=== PATIENT | female | born 1965 | race Caucasian/White ===

== ENCOUNTER → 2017-05-06 | Outpatient (CLI) | payer MEDICAID ==
[2017-05-06 07:46] LABS: Basophils % (A) 0 %; CH 29.3; CHCM 31.5; Eosinophils # (A) 0.1 k/uL (0-0.7); Eosinophils % (A) 1 %; HCT 46.4 % (34.0-46.0); HGB 14.4 gm/dL (11.4-16.0); Luc # (Auto) 0.13; Luc % (Auto) 3; Lymphocytes # (A) 1.8 k/uL (1.0-4.8); Lymphocytes % (A) 36 %; MCH 29.1 pg (25.0-35.0); MCHC 31.1 g/dL (31.0-37.0); MCV 93.4 fL (80.0-100.0); Mean Platelet Volume 7.4; Monocytes # (A) 0.3 k/uL (0-1.0); Monocytes % (A) 7 %; Neutrophils # (A) 2.6 k/uL (1.3-7.7); Neutrophils % (A) 53 %; RBC 4.96 m/uL (3.80-5.40); RDW 12.6 % (11.5-15.5)
[2017-05-06 08:41] LABS: ALT 37 U/L (9-52); AST 23 U/L (14-36); Alkaline Phosphatase 111 U/L (38-126); Anion Gap 9 mmol/L; Blood Urea Nitrogen 13 mg/dL (7-17); Calcium 9.8 mg/dL (8.4-10.2); Carbon Dioxide 27 mmol/L (22-30); Chloride 105 mmol/L (98-107); Cholesterol 296 mg/dL (<200); Glucose 87 mg/dL (74-99); HDL Cholesterol 71 mg/dL (40-60); Non-African American GFR(MDRD) >60 (>60 ml/min/1.73 sqM); Potassium 4.7 mmol/L (3.5-5.1); Sodium 141 mmol/L (137-145); Total Bilirubin 0.6 mg/dL (0.2-1.3); Total Protein 7.3 g/dL (6.3-8.2)
[2017-05-06 09:30] LABS: Vitamin B12 874 pg/mL (239-931)
[2017-05-06 12:56] LABS: Hemoglobin A1C 5.7 % (4.2-6.1)
[2017-05-06 13:44] LABS: Estradiol <11.8 pg/mL
== END | disposition home or self-care (01) ==
LOC: LABWHC1 06:33
PROVIDERS: ATTEND Family Medicine
DX: Z00.00 Encounter for general adult medical examination without abnormal findings (principal); R53.83 Other fatigue; E89.41 Symptomatic postprocedural ovarian failure
CPT/HCPCS: 36415; 80053; 80061; 82040; 82306; 82607; 82626; 82670; 82672; 83001; 83002; 83036; 84270; 84403; 84443; 85025

== ENCOUNTER → 2017-05-14 | Outpatient (CLI) | payer MEDICAID ==
--- NOTE | 2017-05-17 10:02 | MM ---
Reason for exam: screening (asymptomatic). Last mammogram was performed 4 years and 5 months ago. Physical Findings: A clinical breast exam by your physician is recommended on an annual basis and results should be correlated with mammographic findings. MG Screening Mammo w CAD Bilateral CC and MLO view(s) were taken. Prior study comparison: December 02, 2012, bilateral digital screening mammo w/CAD. April 08, 2001, mammogram, performed at [facility]. There are scattered fibroglandular densities. No significant changes when compared with prior studies. ASSESSMENT: Benign, BI-RAD 2 RECOMMENDATION: Routine screening mammogram of both breasts in 1 year.
== END | disposition home or self-care (01) ==
LOC: RADMAMWWP 06:45
PROVIDERS: ATTEND Family Medicine
DX: Z12.31 Encounter for screening mammogram for malignant neoplasm of breast (principal)

== ENCOUNTER → 2017-05-17 | Outpatient (CLI) | payer SELFPAY ==
--- NOTE | 2017-05-18 10:23 | ECHOF ---
Referral Reason: MEASUREMENTS -------- HEIGHT: 172.7 cm WEIGHT: 102.1 kg BP: RVIDd: 3.2 cm (< 3.3) IVSd: 1.0 cm (0.6 - 1.1) LVIDd: 5.0 cm (3.9 - 5.3) LVPWd: 1.2 cm (0.6 - 1.1) IVSs: 1.4 cm LVIDs: 3.8 cm LVPWs: 1.4 cm LAESV Index (A-L): 15.95 ml/m Ao Diam: 2.9 cm (2.0 - 3.7) AV Cusp: 2.1 cm (1.5 - 2.6) LA Diam: 3.4 cm (2.7 - 3.8) MV EXCURSION: 18.742 mm (> 18.000) MV EF SLOPE: 93 mm/s (70 - 150) EPSS: 0.3 cm MV E Hunter: 0.81 m/s MV DecT: 260 ms MV A Hunter: 0.88 m/s MV E/A Ratio: 0.92 RAP: 5.00 mmHg RVSP: 24.03 mmHg FINDINGS -------- Sinus rhythm. This was a technically adequate study. The left ventricular size is normal. There is borderline concentric left ventricular hypertrophy. Overall left ventricular systolic function is normal with, an EF between 55 - 60 %. The right ventricle is normal in size and function. Normal LA size by volume 22+/-6 ml/m2. The right atrium is normal in size. The aortic valve is trileaflet, and appears structurally normal. No aortic stenosis or regurgitation. The mitral valve leaflets are mildly thickened. There is trace mitral regurgitation. There is minimal mitral valve prolapse. Trace tricuspid regurgitation present. Right ventricular systolic pressure is normal at < 35 mmHg. There is no evidence of pulmonary hypertension. Trace/mild (physiologic) pulmonic regurgitation. The aortic root size is normal. Normal inferior vena cava with normal inspiratory collapse consistent with estimated right atrial pressure of 5 mmHg. The pericardium is normal. There is no pericardial effusion. CONCLUSIONS -------- 1. Sinus rhythm. 2. There is minimal mitral valve prolapse. 3. Trace tricuspid regurgitation present. 4. Right ventricular systolic pressure is normal at < 35 mmHg. 5. There is no evidence of pulmonary hypertension. 6. Trace/mild (physiologic) pulmonic regurgitation. 7. The aortic root size is normal. 8. There is no pericardial effusion. 9. This was a technically adequate study. 10. The left ventricular size is normal. 11. There is borderline concentric left ventricular hypertrophy. 12. Overall left ventricular systolic function is normal with, an EF between 55 - 60 %. 13. Normal LA size by volume 22+/-6 ml/m2. 14. The aortic valve is trileaflet, and appears structurally normal. No aortic stenosis or regurgitation. 15. The mitral valve leaflets are mildly thickened. 16. There is trace mitral regurgitation. DIRECTOR IT PROJECT: Jairo Ignacio RDCS
== END | disposition home or self-care (01) ==
LOC: RADECHMAIN 16:20
PROVIDERS: ATTEND Family Medicine
DX: I34.1 Nonrheumatic mitral (valve) prolapse (principal)
CPT/HCPCS: 93306

== ENCOUNTER → 2019-10-10 | Outpatient (CLI) | payer BC ==
--- NOTE | 2019-10-11 12:04 | MM ---
Reason for exam: screening (asymptomatic). Last mammogram was performed 2 years and 5 months ago. History: Patient is postmenopausal. Physical Findings: A clinical breast exam by your physician is recommended on an annual basis and results should be correlated with mammographic findings. MG 3D Screening Mammo W/Cad Bilateral CC and MLO view(s) were taken. Prior study comparison: May 14, 2017, bilateral MG screening mammo w CAD. December 02, 2012, bilateral digital screening mammo w/CAD. Right lateral spiculated asymmetry 10cm from nipple. ASSESSMENT: Incomplete: need additional imaging evaluation, BI-RAD 0 RECOMMENDATION: Special view mammogram of the right breast. If lesion persists on supplemental views, image directed ultrasound is recommended. [facility] will attempt to contact patient to return for supplemental views and ultrasound if indicated.
== END | disposition home or self-care (01) ==
LOC: RADMAMWWP 06:56
PROVIDERS: ATTEND Family Medicine
DX: Z12.31 Encounter for screening mammogram for malignant neoplasm of breast (principal)
CPT/HCPCS: 77063; 77067

== ENCOUNTER → 2019-10-20 | Outpatient (CLI) | payer BC ==
--- NOTE | 2019-10-20 10:14 | MM ---
Reason for exam: additional evaluation requested from abnormal screening. Last mammogram was performed less than 1 month ago. History: Patient is postmenopausal and had first child at age 33. Took hormonal contraceptives for 30 years. Taking progesterone for 2 years. Taking other hormone for 1 year. Physical Findings: Nurse did not find any significant physical abnormalities on exam. MG 3D Work Up W/Cad RT Spot compression CC and ML view(s) were taken of the right breast. Prior study comparison: October 10, 2019, bilateral MG 3d screening mammo w/cad. May 14, 2017, bilateral MG screening mammo w CAD. The breast tissue is heterogeneously dense. This may lower the sensitivity of mammography. The previously seen abnormality resolves on additional views and appears as fibroglandular tissue compatible with summation in the right breast. These results were verbally communicated with the patient and result sheet given to the patient on 10/20/19. ASSESSMENT: Negative, BI-RAD 1 RECOMMENDATION: Return to routine screening mammogram schedule for both breasts.
== END | disposition home or self-care (01) ==
LOC: RADMAMWWP 08:57
PROVIDERS: ATTEND Family Medicine
DX: R92.8 Other abnormal and inconclusive findings on diagnostic imaging of breast (principal)
CPT/HCPCS: 77061; 77065

== ENCOUNTER → 2021-03-21 | Outpatient (CLI) | payer BC ==
--- NOTE | 2021-03-21 11:13 | US ---
EXAMINATION TYPE: US abdomen complete DATE OF EXAM: 03/21/2021 COMPARISON: CLINICAL HISTORY: R10.9 ABD PAIN. Generalized abd pain. NPO. EXAM MEASUREMENTS: Liver Length: 15.3 cm Gallbladder Wall: 0.2 cm CBD: 0.4 cm Spleen: 11.4 cm Right Kidney: 11.4 x 5.4 x 5.4 cm Left Kidney: 11.2 x 5.1 x 6.2 cm Pancreas: Tail obscured by overlying bowel gas Liver: Heterogenous and coarse Gallbladder: wnl Evidence for sonographic Webster's sign: neg CBD: wnl Spleen: wnl Right Kidney: No hydronephrosis or masses seen Left Kidney: No hydronephrosis or masses seen Upper IVC: wnl Abd Aorta: No AAA visualized IMPRESSION: 1. Heterogeneous pattern of liver is nonspecific could be seen with hepatic steatosis or hepatocellul ar disease such as hepatitis correlate clinically.
== END | disposition home or self-care (01) ==
LOC: RADUSWWP 10:42
PROVIDERS: ATTEND Family Medicine
DX: R10.9 Unspecified abdominal pain (principal)
CPT/HCPCS: 76700

== ENCOUNTER → 2021-05-19 | Outpatient (CLI) | payer BC ==
--- NOTE | 2021-05-19 15:22 | NM ---
EXAMINATION TYPE: NM hepatobiliary w EF DATE OF EXAM: 05/19/2021 COMPARISON: NONE HISTORY: RUQ R10.11 TECHNIQUE: After the intravenous administration of 4.3 mCi Tc 99m Mebrofenin hepatobiliary scintigrap hy is performed. Immediate images post injection. FINDINGS: There is satisfactory initial accumulation of tracer by the liver. The gallbladder is visualized wit hin 6 minutes. The small bowel activity is noted within 6 minutes. At one hour 8 ounces of oral ens ure plus is given to mimic CCK and gallbladder ejection fraction is calculated at 82 %, in the normal range. Therefore there is no scintigraphic evidence of cystic or common bile duct obstruction to gomes ggest acute cholecystitis or gallbladder dyskinesia. IMPRESSION: Exam is within normal limits.
== END | disposition home or self-care (01) ==
LOC: RADNMMAIN 12:41
PROVIDERS: ATTEND Family Medicine
DX: R10.11 Right upper quadrant pain (principal)
CPT/HCPCS: 78226; A9537

== ENCOUNTER → 2021-12-30 | Outpatient (CLI) | payer BC ==
--- NOTE | 2021-12-31 17:09 | MM ---
Reason for Exam: Screening (asymptomatic). Last mammogram was performed 2 year(s) and 2 month(s) ago. Patient History: Menarche at age 14. First Full-Term at age 33. Late child-bearing (after 32). Left ovary removed at age 48. Right ovary removed at age 48. Postmenopausal. Currently using Progesterone, for 4 years. Patient used Hormonal Contraceptives for 30 years. Risk Values: Susy 5 year model risk: 1.6%. NCI Lifetime model risk: 11.4%. Film Views: Bilateral CC views were taken. Bilateral MLO views were taken. Bilateral XCCL views were taken. Prior Study Comparison: 05/14/2017 Bilateral Screening Mammogram, [facility]. 10/10/2019 Bilateral Screening Mammogram, [facility]. 10/20/2019 Right Diagnostic Mammogram, [facility]. Tissue Density: There are scattered fibroglandular densities. Findings: Analyzed By CAD. There is no suspicious group of microcalcifications or new suspicious mass in either breast. Overall Assessment: Negative, BI-RAD 1 Management: Screening Mammogram of both breasts in 1 year. A clinical breast exam by your physician is recommended on an annual basis and results should be correlated with mammographic findings. Electronically signed and approved by: Scar Carolina D.O. Radiologis
== END | disposition home or self-care (01) ==
LOC: RADMAMWWP 06:53
PROVIDERS: ATTEND Nurse Practitioner Family
DX: Z12.31 Encounter for screening mammogram for malignant neoplasm of breast (principal)
CPT/HCPCS: 77067

== ENCOUNTER 2023-04-22 00:07 | Emergency (ER) | payer BC ==
--- NOTE | 2023-04-22 00:53 | ED ---
ENT HPI - General Chief complaint: ENT Stated complaint: Jaw Pain Time Seen by Provider: 04/22/23 00:41 Source: patient Mode of arrival: ambulatory Limitations: no limitations - History of Present Illness Initial comments: 57-year-old female presenting with chief complaint of left-sided jaw pain. Patient states that pain has been present for about a week. She initially thought it was TMJ. She has been seeing her chiropractor for this. Patient states that pain is worsening and she went to urgent care this evening and gave her shot of Toradol. She has been alternating heat and ice. Tonight she woke up in severe pain and also noted new swelling to the left lower jaw. She has no known dental caries or fractures. She does admit to tooth and gum pain. No fevers or chills. No difficulty breathing or swallowing. - Related Data Previous Rx's Medication Instructions Recorded Clindamycin [Cleocin] 450 mg PO TID 7 Days #63 cap 04/22/23 Allergies Allergy/AdvReac Type Severity Reaction Status Date / Time Penicillins Allergy Rash/Hives Verified 04/22/23 00:14 Review of Systems ROS Statement: Those systems with pertinent positive or pertinent negative responses have been documented in the HPI. ROS Other: All systems not noted in ROS Statement are negative. Past Medical History Past Medical History: No Reported History History of Any Multi-Drug Resistant Organisms: None Reported Past Surgical History: Orthopedic Surgery, Tonsillectomy Past Psychological History: ADD/ADHD Smoking Status: Never smoker Past Alcohol Use History: None Reported Past Drug Use History: Marijuana General Exam Limitations: no limitations General appearance: alert, in no apparent distress Head exam: Present: atraumatic, normocephalic, normal inspection Eye exam: Present: normal appearance, EOMI ENT exam: Present: normal oropharynx, mucous membranes moist Expanded Mouth exam: Present: tongue normal. Absent: drooling, trismus, muffled voice Teeth exam: Present: normal inspection, dental tenderness # Throat exam: normal inspection Neck exam: Present: normal inspection, full ROM Respiratory exam: Absent: respiratory distress Neurological exam: Present: alert, oriented X3, CN II-XII intact Psychiatric exam: Present: normal affect, normal mood Skin exam: Present: warm, dry, intact, normal color. Absent: rash Course Vital Signs 04/22/23 00:11 Temperature 97.6 F Pulse Rate 93 Respiratory 16 Rate Blood Pressure 180/95 O2 Sat by Pulse 97 Oximetry Medical Decision Making - Medical Decision Making Was pt. sent in by a medical professional or institution (SELENA Charles, CLIENT SUCCESS MANAGER, urgent care, hospital, or senior care...) When possible be specific @ -No Did you speak to anyone other than the patient for history (EMS, parent, family, police, friend...)? What history was obtained from this source @ -No Did you review nursing and triage notes (agree or disagree)? Why? @ -I reviewed and agree with nursing and triage notes Were old charts reviewed (outside hosp., previous admission, EMS record, old EKG, old radiological studies, urgent care reports/EKG's, senior care records)? Report findings @ -No old charts were reviewed Differential Diagnosis (chest pain, altered mental status, abdominal pain women, abdominal pain men, vaginal bleeding, weakness, fever, dyspnea, syncope, headache, dizziness, GI bleed, back pain, seizure, CVA, palpatations, mental health, musculoskeletal)? @ -Differential includes dental pain, dental abscess, Pancho angina, this is not an all inclusive list EKG interpreted by me (3pts min.). @ -As above X-rays interpreted by me (1pt min.). @ -None done CT interpreted by me (1pt min.). @ -None done U/S interpreted by me (1pt. min.). @ -None done What testing was considered but not performed or refused? (CT, X-rays, U/S, labs)? Why? @ -None What meds were considered but not given or refused? Why? @ -None Did you discuss the management of the patient with other professionals (professionals i.e. SELENA Charles, CLIENT SUCCESS MANAGER, lab, RT, psych nurse, social worker delinquency prevention, corporate lawyer, teacher, complaint investigations officer, manager rn case)? Give summary @ -No Was smoking cessation discussed for >3mins.? @ -No Was critical care preformed (if so, how long)? @ -No Were there social determinants of health that impacted care today? How? (Homelessness, low income, unemployed, alcoholism, drug addiction, transportation, low edu. Level, literacy, decrease access to med. care, longterm, rehab)? @ -No Was there de-escalation of care discussed even if they declined (Discuss DNR or withdrawal of care, Hospice)? DNR status @ -No What co-morbidities impacted this encounter? (DM, HTN, Smoking, COPD, CAD, Cancer, CVA, ARF, Chemo, Hep., AIDS, mental health diagnosis, sleep apnea, morbid obesity)? @ -None Was patient admitted / discharged? Hospital course, mention meds given and route, prescriptions, significant lab abnormalities, going to OR and other pertinent info. @ -57-year-old female presenting with chief complaint of left lower sided jaw pain. Tonight she noted swelling to the jaw. She admits to dental pain and gum pain. On physical examination there is tenderness to the left sided lower teeth and gums. No brawny induration. Normal posterior pharynx. Patient is started on clindamycin for dental abscess due to penicillin ALLERGY. Educated on supportive management instructed to follow-up with her dentist. Follow-up with PCP. Report back to ER with any new or worsening symptoms. Discussed return parameters and answered all questions. Patient conveyed verbal understanding and agreed to the plan. I discussed this case in detail with my attending Dr. Acosta Undiagnosed new problem with uncertain prognosis? @ -No Drug Therapy requiring intensive monitoring for toxicity (Heparin, Nitro, Insulin, Cardizem)? @ -No Were any procedures done? @ -No Diagnosis/symptom? @ -Dental abscess Acute, or Chronic, or Acute on Chronic? @ -acute Uncomplicated (without systemic symptoms) or Complicated (systemic symptoms)? @ -Uncomplicated Side effects of treatment? @ -No Exacerbation, Progression, or Severe Exacerbation? @ -No Poses a threat to life or bodily function? How? (Chest pain, USA, VT, pneumonia, PE, COPD, DKA, ARF, appy, cholecystitis, CVA, Diverticulitis, Homicidal, Suicidal, threat to staff... and all critical care pts) @ -No Disposition Clinical Impression: Dental abscess Disposition: HOME SELF-CARE Condition: Good Instructions (If sedation given, give patient instructions): Dental Abscess (ED) Additional Instructions: Follow-up with your dentist. Report back to ER with any new or worsening symptoms. Take medication as prescribed. Alternate Motrin and Tylenol as needed for pain control. Prescriptions: Clindamycin [Cleocin] 450 mg PO TID 7 Days #63 cap Is patient prescribed a controlled substance at d/c from ED?: No Referrals: Ernst Montanez DO [Primary Care Provider] - 1-2 days Time of Disposition: 00:52
[2023-04-22] MEDS ORDERED: ACET/COD 300 MG/30 MG STARTER PACK 6 TAB BTL PO STA (00:54)
[2023-04-22] MEDS ORDERED: CLINDAMYCIN 150 MG CAP PO STA (00:54)
[2023-04-22 15:51] VITALS: BP 180/95; PULSE 93; RESP 16; TEMP 97.6
== END 2023-04-22 01:07 | disposition home or self-care (01) ==
LOC: EC 00:07
DX: K04.7 Periapical abscess without sinus (principal); F12.90 Cannabis use, unspecified, uncomplicated; Z86.59 Personal history of other mental and behavioral disorders
CPT/HCPCS: 99282

== ENCOUNTER 2023-05-08 13:23 | Inpatient (IN) | payer BC ==
[2023-05-08 14:12] LABS: Basophils % (A) 0 %; Eosinophils # (A) 0.1 k/uL (0-0.7); Eosinophils % (A) 1 %; HCT 39.3 % (34.0-46.0); HGB 12.8 gm/dL (11.4-16.0); Lymphocytes # (A) 1.3 k/uL (1.0-4.8); Lymphocytes % (A) 15 %; MCH 29.5 pg (25.0-35.0); MCHC 32.5 g/dL (31.0-37.0); MCV 90.9 fL (80.0-100.0); Mean Platelet Volume 7.9; Monocytes # (A) 0.6 k/uL (0-1.0); Monocytes % (A) 7 %; Neutrophils # (A) 6.7 k/uL (1.3-7.7); Neutrophils % (A) 76 %; Platelet Count 369 k/uL (150-450); RBC 4.33 m/uL (3.80-5.40); RDW 12.3 % (11.5-15.5); WBC 8.9 k/uL (3.8-10.6)
--- NOTE | 2023-05-08 14:26 | ED ---
General Adult HPI - General Source: patient, RN notes reviewed Mode of arrival: ambulatory Limitations: no limitations <Toñito Hernandez - Last Filed: 05/08/23 14:24> - General Source: patient, RN notes reviewed Mode of arrival: ambulatory Limitations: no limitations <Rolan Ramirez - Last Filed: 05/08/23 16:49> - General Chief complaint: Skin/Abscess/Foreign Body Stated complaint: Facial Swelling Time Seen by Provider: 05/08/23 14:24 - History of Present Illness Initial comments: 57-year-old female presents emergency Department chief complaint of facial infection. Patient states that she's been dealing with issues for last 3 weeks. Patient was placed on oral antibiotics she states she follow-up with her dentist after this and was sent to cartridge filler. Patient had a root canal states it still has it's antiemetic portion. Patient states that she had it opened. Patient had a CAT scan at [facility] which showed no bone infection or formation of abscess. Patient discussed with and odontoid last today and advised her to come emergency department for possible admission (Toñito Hernandez) Patient is a pleasant 57-year-old female presenting to the emergency department with concern for dental infection. Patient states this has been going on for several weeks. Patient was here on the and given clindamycin. This was continued. Patient did have a root canal. Patient was started on Levaquin yesterday and has had 2 doses of this now. Patient states there is still some swelling and drainage left lower region that was previously infected. Patient states now since yesterday there is some swelling on the right lower as well. Patient does not have drainage coming from the right lower region. No dyspnea. Patient is tolerating oral intake. (Rolan Ramirez) - Related Data Previous Rx's Medication Instructions Recorded Clindamycin [Cleocin] 450 mg PO TID 7 Days #63 cap 04/22/23 Allergies Allergy/AdvReac Type Severity Reaction Status Date / Time Penicillins Allergy Rash/Hives Verified 04/22/23 00:14 Review of Systems ROS Other: All systems not noted in ROS Statement are negative. <Toñito Hernandez - Last Filed: 05/08/23 14:24> ROS Other: All systems not noted in ROS Statement are negative. Constitutional: Reports: as per HPI (Subjective fevers. Patient states she has been taking a lot of Motrin) Eyes: Denies: eye pain ENT: Reports: as per HPI, dental pain Respiratory: Denies: dyspnea <Rolan Ramirez - Last Filed: 05/08/23 16:49> ROS Statement: Those systems with pertinent positive or pertinent negative responses have been documented in the HPI. Past Medical History Past Medical History: No Reported History History of Any Multi-Drug Resistant Organisms: None Reported Past Surgical History: Orthopedic Surgery, Tonsillectomy Past Psychological History: ADD/ADHD Smoking Status: Never smoker Past Alcohol Use History: None Reported Past Drug Use History: Marijuana <Toñito Hernandez - Last Filed: 05/08/23 14:24> General Exam Limitations: no limitations <Toñito Hernandez - Last Filed: 05/08/23 14:24> Limitations: no limitations General appearance: alert, in no apparent distress Head exam: Present: atraumatic Eye exam: Present: normal appearance ENT exam: Present: other (Left lower canine and second premolar with mild swelling and purulent drainage that is easily expressed using tongue depressor. Right lower anterior and slightly lateral mandible with exterior swelling. No sign of dental swelling or drainage in that region. No submental or submandibular swelling ) Neck exam: Present: normal inspection Respiratory exam: Present: normal lung sounds bilaterally. Absent: respiratory distress Cardiovascular Exam: Present: regular rate, normal rhythm GI/Abdominal exam: Present: soft. Absent: tenderness Extremities exam: Present: normal inspection Neurological exam: Present: alert Psychiatric exam: Present: normal affect, normal mood Skin exam: Present: normal color <Rolan Ramirez - Last Filed: 05/08/23 16:49> - General Exam Comments Initial Comments: Visual Physical Exam Vital signs reviewed General: Well-appearing, nontoxic, no acute distress. Head: Normocephalic, atraumatic Eyes: PERRLA, EOMI ENT: Airway patent erythema in the submandibular region Chest: Nonlabored breathing Skin: No visual rash, normal skin tone Neuro: Alert and oriented 3 Musculoskeletal: No gross abnormalities (Toñito Hernandez) Course Vital Signs 05/08/23 13:31 Temperature 98.5 F Pulse Rate 104 H Respiratory 20 Rate Blood Pressure 178/86 O2 Sat by Pulse 98 Oximetry Medical Decision Making - Lab Data Result diagrams: 05/08/23 13:50 <Toñito Hernandez - Last Filed: 05/08/23 14:24> - Lab Data Result diagrams: 05/08/23 13:50 05/08/23 13:50 <Rolan Ramirez - Last Filed: 05/08/23 16:49> - Medical Decision Making I performed a quick note portion of this chart signed Toñito Hernandez PA-C (Toñito Hernandez) Was pt. sent in by a medical professional or institution ([facility], [facility], urgent care, hospital, or fpc...) When possible be specific @ -No Did you speak to anyone other than the patient for history (EMS, parent, family, police, friend...)? What history was obtained from this source @ -No Did you review nursing and triage notes (agree or disagree)? Why? @ -I reviewed and agree with nursing and triage notes Were old charts reviewed (outside hosp., previous admission, EMS record, old EKG, old radiological studies, urgent care reports/EKG's, fpc records)? Report findings @ -No old charts were reviewed Differential Diagnosis (chest pain, altered mental status, abdominal pain women, abdominal pain men, vaginal bleeding, weakness, fever, dyspnea, syncope, headache, dizziness, GI bleed, back pain, seizure, CVA, palpatations, mental health, musculoskeletal)? @ -Differential Fever: Pneumonia, viral URI, endocarditis, myocarditis, pericarditis, otitis, sinusitis, peritonsillar Abscess, retropharyngeal Abscess, epiglottitis, peritonitis, appendicitis, Shanta cystitis, diverticulitis, hepatitis, colitis, UTI, PID, TOA, pyelonephritis, prostatitis, epididymitis, meningitis, encephalitis, pulmonary embolism, CVA, thyroid storm, pancreatitis, adrenal crisis, cavernous sinus thrombosis, this is not meant to be an all-inclusive list. EKG interpreted by me (3pts min.). @ -As above X-rays interpreted by me (1pt min.). @ -None done CT interpreted by me (1pt min.). @ -Report reviewed U/S interpreted by me (1pt. min.). @ -None done What testing was considered but not performed or refused? (CT, X-rays, U/S, labs)? Why? @ -None What meds were considered but not given or refused? Why? @ -None Did you discuss the management of the patient with other professionals (professionals i.e. DrHai, PA, [facility], lab, RT, psych nurse, social worker masters, fabrication and assembly supervisor, teacher, ammunition officer, case resolution specialist)? Give summary @ -Case was discussed with Dr. Mitchell, covering Dr. Asencio's. Oral maxillary facial be placed on consult Was smoking cessation discussed for >3mins.? @ -No Was critical care preformed (if so, how long)? @ -No Were there social determinants of health that impacted care today? How? (Homelessness, low income, unemployed, alcoholism, drug addiction, transportation, low edu. Level, literacy, decrease access to med. care, usp, rehab)? @ -No Was there de-escalation of care discussed even if they declined (Discuss DNR or withdrawal of care, Hospice)? DNR status @ -No What co-morbidities impacted this encounter? (DM, HTN, Smoking, COPD, CAD, Cancer, CVA, ARF, Chemo, Hep., AIDS, mental health diagnosis, sleep apnea, morbid obesity)? @ -None Was patient admitted / discharged? Hospital course, mention meds given and route, prescriptions, significant lab abnormalities, going to OR and other pertinent info. @ -Patient reevaluated and updated. Patient will be admitted for IV antibiotics. Patient will need oral maxillary facial consult. Admission orders written. Undiagnosed new problem with uncertain prognosis? @ -No Drug Therapy requiring intensive monitoring for toxicity (Heparin, Nitro, Insulin, Cardizem)? @ -No Were any procedures done? @ -No Diagnosis/symptom? @ -Dental abscess Acute, or Chronic, or Acute on Chronic? @ -Acute Uncomplicated (without systemic symptoms) or Complicated (systemic symptoms)? @ -default Side effects of treatment? @ -No Exacerbation, Progression, or Severe Exacerbation? @ -No Poses a threat to life or bodily function? How? (Chest pain, USA, NM, pneumonia, PE, COPD, DKA, ARF, appy, cholecystitis, CVA, Diverticulitis, Homicidal, Suicidal, threat to staff... and all critical care pts) @ -No (Rolan Ramirez) - Lab Data Lab Results 05/08/23 05/08/23 05/08/23 Range/Units 13:50 13:50 13:50 WBC 8.9 (3.8-10.6) k/uL RBC 4.33 (3.80-5.40) m/uL Hgb 12.8 (11.4-16.0) gm/dL Hct 39.3 (34.0-46.0) % MCV 90.9 (80.0-100.0) fL MCH 29.5 (25.0-35.0) pg MCHC 32.5 (31.0-37.0) g/dL RDW 12.3 (11.5-15.5) % Plt Count 369 (150-450) k/uL MPV 7.9 Neutrophils % 76 % Lymphocytes % 15 % Monocytes % 7 % Eosinophils % 1 % Basophils % 0 % Neutrophils # 6.7 (1.3-7.7) k/uL Lymphocytes # 1.3 (1.0-4.8) k/uL Monocytes # 0.6 (0-1.0) k/uL Eosinophils # 0.1 (0-0.7) k/uL Basophils # 0.0 (0-0.2) k/uL Sodium 139 (137-145) mmol/L Potassium 4.2 (3.5-5.1) mmol/L Chloride 102 (98-107) mmol/L Carbon Dioxide 25 (22-30) mmol/L Anion Gap 12 mmol/L BUN 19 H (7-17) mg/dL Creatinine 0.85 (0.52-1.04) mg/dL Est GFR (CKD-EPI)AfAm 90 (>60 ml/min/1.73 sqM) Est GFR (CKD-EPI)NonAf 78 (>60 ml/min/1.73 sqM) Glucose 116 H (74-99) mg/dL Plasma Lactic Acid Gt 0.7 (0.7-2.0) mmol/L Calcium 9.7 (8.4-10.2) mg/dL Total Bilirubin 0.8 (0.2-1.3) mg/dL AST 25 (14-36) U/L ALT 22 (4-34) U/L Alkaline Phosphatase 92 (38-126) U/L Total Protein 7.6 (6.3-8.2) g/dL Albumin 4.1 (3.5-5.0) g/dL Disposition <Toñito Hernandez - Last Filed: 05/08/23 14:24> Is patient prescribed a controlled substance at d/c from ED?: No Time of Disposition: 16:49 <Rolan Ramirez - Last Filed: 05/08/23 16:49> Clinical Impression: Dental abscess Disposition: ADMITTED IP TO THIS HOSP Referrals: Ernst Montanez DO [Primary Care Provider] - 1-2 days
[2023-05-08 14:32] LABS: ALT 22 U/L (4-34); AST 25 U/L (14-36); African American GFR (CKD) 90 (>60 ml/min/1.73 sqM); Albumin 4.1 g/dL (3.5-5.0); Alkaline Phosphatase 92 U/L (38-126); Anion Gap 12 mmol/L; Blood Urea Nitrogen 19 mg/dL (7-17); Calcium 9.7 mg/dL (8.4-10.2); Carbon Dioxide 25 mmol/L (22-30); Chloride 102 mmol/L (98-107); Glucose 116 mg/dL (74-99); Non-African American GFR(CKD) 78 (>60 ml/min/1.73 sqM); Potassium 4.2 mmol/L (3.5-5.1); Sodium 139 mmol/L (137-145); Total Bilirubin 0.8 mg/dL (0.2-1.3); Total Protein 7.6 g/dL (6.3-8.2)
[2023-05-08] MEDS ORDERED: VANCOMYCIN IV PER PHARMACY 1 EACH MISC MISCELLANE PRN (15:07)
[2023-05-08] MEDS ORDERED: VANCOMYCIN 1,750 MG in SODIUM CHLORIDE 0.9% 500 ML 500 ML IVPB STA (15:10)
[2023-05-08] MEDS: AZITHROMYCIN 500 MG in SODIUM CHLORIDE 0.9% 250 ML IVPB SCH (15:55)
--- NOTE | 2023-05-08 16:19 | CT ---
EXAMINATION TYPE: CT facial bones w con DATE OF EXAM: 05/08/2023 COMPARISON: None HISTORY: mandibular swelling x [address] DLP: 726.8 mGycm Automated exposure control for dose reduction was used. CONTRAST: CT scan of the facial bones is performed with IV Contrast, patient injected with 100 cc mL of Isovue 300. TECHNIQUE: CT scan of the sinuses is performed without contrast, axial images are obtained, coronal r eformatted images are also reviewed. FINDINGS: The paranasal sinuses including the frontal, ethmoid, sphenoid, and maxillary sinuses bila terally are well-aerated without abnormal opacification. The ostiomeatal complex is patent bilateral ly on the coronal images. Visualized portion of mastoid air cells show no abnormal opacification. The globes are intact bilate rally. The osseous structures are intact without evidence of cortical destruction or periosteal reaction. Sp ecifically the mandible and TMJs appear intact. There is no evidence of a discrete soft tissue fluid collection or abscess. IMPRESSION: No significant abnormality seen.
[2023-05-08] MEDS ORDERED: NALOXONE 0.4 MG/ML 1 ML VIAL IV PRN (16:49)
[2023-05-08] MEDS: SODIUM CHLORIDE 0.9% 1,000 ML IV SCH (17:03)
[2023-05-08] MEDS: oxyCODONE-APAP 5-325MG 1 EACH TAB PO PRN (18:15)
--- NOTE | 2023-05-08 19:27 | P.HPIM ---
History of Present Illness H&P Date: 05/08/23 Chief Complaint: Facial swelling 57-year-old female presents emergency Department chief complaint of facial/dental infection. Patient states that she's been dealing with issues for last 3 weeks. Patient was seen in ED on the and was placed on oral clindamycin; she states she follow-up with her dentist after this and was sent to tissue recovery technician. Patient had a root canal states she was started on Levaquin yesterday and was able to take 2 doses. Patient had a CAT scan at [facility] which showed no bone infection or formation of abscess. Patient states there is still some swelling and drainage left lower region that was previously infected. Patient states now since yesterday there is some swelling on the right lower as well. Patient does not have drainage coming from the right lower region. No dyspnea. Patient is tolerating oral intake. Patient discussed with and odontoid last today and advised her to come emergency department for possible admission Blood work completed in ED reveals a WBC of 8.9, hemoglobin of 12.8 and platelet count of 369, sodium 139, potassium 4.2, BUN/creatinine of 19/0.85 and blood glucose of [address] completed in ED does not reveal any significant abnormality Review of Systems REVIEW OF SYSTEMS: CONSTITUTIONAL: No fever, no malaise, no fatigue. HEENT: No recent visual problems or hearing problems. Denied any sore throat. CARDIOVASCULAR: No chest pain, orthopnea, PND, no palpitations, no syncope. PULMONARY: No shortness of breath, no cough, no hemoptysis. GASTROINTESTINAL: No diarrhea, no nausea, no vomiting, no abdominal pain. NEUROLOGICAL: No headaches, no weakness, no numbness. HEMATOLOGICAL: Denies any bleeding or petechiae. GENITOURINARY: Denies any burning micturition, frequency, or urgency. MUSCULOSKELETAL/RHEUMATOLOGICAL: Denies any joint pain, swelling, or any muscle pain. ENDOCRINE: Denies any polyuria or polydipsia. The rest of the 14-point review of systems is negative. Past Medical History Past Medical History: No Reported History History of Any Multi-Drug Resistant Organisms: None Reported Past Surgical History: Orthopedic Surgery, Tonsillectomy Past Psychological History: ADD/ADHD Smoking Status: Never smoker Past Alcohol Use History: None Reported Past Drug Use History: Marijuana Medications and Allergies Home Medications Medication Instructions Recorded Confirmed Type Clindamycin [Cleocin] 150 mg PO Q6H 05/08/23 05/08/23 History HYDROcodone/APAP 7.5-325MG [[place] 1 tab PO Q6H PRN 05/08/23 05/08/23 History 7.5-325] Ibuprofen [Motrin] 800 mg PO Q6H PRN 05/08/23 05/08/23 History Levofloxacin [Levaquin] 500 mg PO DAILY 05/08/23 05/08/23 History Progesterone, Micronized 200 mg PO HS 05/08/23 05/08/23 History [Progesterone] Testosterone/Estrogen Pellet 1 dose SQ Q90D 05/08/23 05/08/23 History Implant Allergies Allergy/AdvReac Type Severity Reaction Status Date / Time amoxicillin Allergy Rash/Hives Verified 05/08/23 18:05 Penicillins Allergy Rash/Hives Verified 05/08/23 18:05 Physical Exam Vitals: Vital Signs Temp Pulse Resp BP Pulse Ox 05/08/23 13:31 98.5 F 104 H 20 178/86 98 Intake and Output 05/08/23 05/08/23 05/08/23 06:59 14:59 22:59 Other: Weight 108.862 kg General appearance: alert, in no apparent distress Head exam: Present: atraumatic Eye exam: Present: normal appearance ENT exam: Present: other (Left lower canine and second premolar with mild swelling and purulent drainage that is easily expressed using tongue depressor. Right lower anterior and slightly lateral mandible with exterior swelling. No sign of dental swelling or drainage in that region. No submental or submandibular swelling ) Neck exam: Present: normal inspection Respiratory exam: Present: normal lung sounds bilaterally. Absent: respiratory distress Cardiovascular Exam: Present: regular rate, normal rhythm GI/Abdominal exam: Present: soft. Absent: tenderness Extremities exam: Present: normal inspection Neurological exam: Present: alert Psychiatric exam: Present: normal affect, normal mood Skin exam: Present: normal color Results CBC & Chem 7: 05/08/23 13:50 05/08/23 13:50 Labs: Abnormal Lab Results - Last 24 Hours (Table) 05/08/23 Range/Units 13:50 BUN 19 H (7-17) mg/dL Glucose 116 H (74-99) mg/dL Assessment and Plan Assessment: Facial swelling; dental abscess - Facial CT does not reveal any significant abnormality; white blood count and lactic acid levels are within normal limit - Patient has been previously treated with clindamycin and Levaquin; she is placed on IV vancomycin and azithromycin in ED - Oral maxillofacial consult is placed; appreciate recommendations Uncontrolled pain - Patient has been placed on Percocet 53 25 mg every 4 hours when necessary along with all trend 50 mg every 6 hours when necessary and ibuprofen 400 mg every 6 hours when necessary DVT prophylaxis; SCDs CODE STATUS; full code
[2023-05-08] MEDS: NON FORMULARY DRUG (Progesterone, Micronized [Progesterone] 200 MG Capsule) PO SCH ×2 (20:29→20:30)
[2023-05-08] MEDS: IBUPROFEN 400 MG TAB PO PRN (21:50)
[2023-05-08] MEDS: traMADol 50 MG TAB PO PRN (23:38)
[2023-05-09] MEDS: oxyCODONE-APAP 5-325MG 1 EACH TAB PO PRN ×3 (01:21→18:11)
[2023-05-09] MEDS: IBUPROFEN 400 MG TAB PO PRN ×3 (04:00→18:11)
[2023-05-09] MEDS: VANCOMYCIN 1,750 MG in SODIUM CHLORIDE 0.9% 500 ML 500 ML IVPB SCH ×2 (05:45→18:07)
[2023-05-09] MEDS: SODIUM CHLORIDE 0.9% 1,000 ML IV SCH ×2 (05:47→20:26)
[2023-05-09 06:29] LABS: African American GFR (CKD) >90 (>60 ml/min/1.73 sqM); Non-African American GFR(CKD) >90 (>60 ml/min/1.73 sqM)
[2023-05-09] MEDS: ACETAMINOPHEN TAB 325 MG TAB PO PRN ×3 (08:15→21:07)
[2023-05-09 09:48] LABS: Blood Urea Nitrogen 13.3 mg/dL (9.0-27.0); Calcium 8.7 mg/dL (8.7-10.3); Carbon Dioxide 26.1 mmol/L (21.6-31.8); Chloride 102 mmol/L (96-109); Glucose 89 mg/dL (70-110); Potassium 3.7 mmol/L (3.5-5.5); Sodium 139 mmol/L (135-145)
[2023-05-09 09:49] LABS: Basophils # (A) 0.03 X 10*3/uL (0.00-0.10); Basophils % (A) 0.3 %; Eosinophils # (A) 0.05 X 10*3/uL (0.04-0.35); Eosinophils % (A) 0.6 %; HCT 36.5 % (37.2-46.3); HGB 11.5 d/dL (12.0-15.0); Lymphocytes # (A) 1.61 X 10*3/uL (0.90-5.00); MCH 29.5 pg (27.0-32.0); MCHC 31.5 d/dL (32.0-37.0); MCV 93.6 FL (80.0-97.0); Mean Platelet Volume 10.7 FL (9.5-12.2); Monocytes # (A) 1.08 X 10*3/uL (0.20-1.00); Monocytes % (A) 12.1 %; NRBC Per 100 WBC 0 X 10*3/uL (0.00-0.01); Neutrophils # (A) 6.13 X 10*3/uL (1.80-7.70); Neutrophils % (A) 68.4 %; Platelet Count 379 X 10*3/uL (140-440); RDW 12.4 % (11.5-14.5); WBC 8.95 X 10*3/uL (4.50-10.00)
[2023-05-09] MEDS: traMADol 50 MG TAB PO PRN ×2 (10:43→20:25)
[2023-05-09] MEDS: AZITHROMYCIN 500 MG in SODIUM CHLORIDE 0.9% 250 ML IVPB SCH (11:17)
[2023-05-09] MEDS: HYDROmorphone 0.5 MG/0.5 ML SYRINGE IVP PRN ×2 (11:42→23:08)
[2023-05-09] MEDS ORDERED: BUPIVACAIN-EPI 0.5%-1:200,000 30 ML VIAL SQ STA (13:48)
--- NOTE | 2023-05-09 14:02 | P.PN ---
Subjective Progress Note Date: 05/09/23 57-year-old female presents emergency Department chief complaint of facial/dental infection. Patient states that she's been dealing with issues for last 3 weeks. Patient was seen in ED on the and was placed on oral clindamycin; she states she follow-up with her dentist after this and was sent to electric fork operator. Patient had a root canal states she was started on Levaquin yesterday and was able to take 2 doses. Patient had a CAT scan at [facility] which showed no bone infection or formation of abscess. Patient states there is still some swelling and drainage left lower region that was previously infected. Patient states now since yesterday there is some swelling on the right lower as well. Patient does not have drainage coming from the right lower region. No dyspnea. Patient is tolerating oral intake. Patient discussed with and odontoid last today and advised her to come emergency department for possible admission Blood work completed in ED reveals a WBC of 8.9, hemoglobin of 12.8 and platelet count of 369, sodium 139, potassium 4.2, BUN/creatinine of 19/0.85 and blood glucose of [address] completed in ED does not reveal any significant abnormality -- Patient is seen and evaluated in room at bedside; patient reports increased facial swelling and redness since morning; patient indicates swelling is slightly improved with pain medication?? Vital signs are reviewed and patient remains afebrile; blood pressure stable Lab review shows CBC of 8.95 with a stable since yesterday, hemoglobin of 11.5 and platelet count of 379, sodium 139, potassium 3.7, BUN improved from yesterday at 19 down to 13.3, lactic acid within normal limit - Patient remains on IV antibiotics for facial cellulitis and dental abscess -- Printing Specialist consult pending; we will consult ID for recommendations on IV antibiotics for worsening facial cellulitis - Plan to start IV steroids if swelling and redness worsens or with any signs of distress; we will hold off at this time Objective - Vital Signs Vital signs: Vital Signs Temp 98.2 F 05/09/23 07:00 Pulse 83 05/09/23 07:00 Resp 14 05/09/23 07:00 BP 167/95 05/09/23 07:00 Pulse Ox 97 05/09/23 07:00 FiO2 Intake & Output 05/08/23 05/09/23 05/09/23 18:59 06:59 18:59 Intake Total 118 Balance 118 Weight 108.862 kg 108.862 kg Intake: Oral 118 Other: # Voids 1 - Exam PHYSICAL EXAMINATION: GENERAL: The patient is alert and oriented x3, not in any acute distress. Well developed, well nourished. HEENT: Pupils are round and equally reacting to light. EOMI. No scleral icterus. No conjunctival pallor. Normocephalic, atraumatic. No pharyngeal erythema. No thyromegaly. CARDIOVASCULAR: S1 and S2 present. No murmurs, rubs, or gallops. PULMONARY: Chest is clear to auscultation, no wheezing or crackles. ABDOMEN: Soft, nontender, nondistended, normoactive bowel sounds. No palpable organomegaly. MUSCULOSKELETAL: No joint swelling or deformity. EXTREMITIES: No cyanosis, clubbing, or pedal edema. NEUROLOGICAL: Gross neurological examination did not reveal any focal deficits. SKIN: No rashes. - Labs CBC & Chem 7: 05/09/23 05:32 05/09/23 05:32 Labs: Abnormal Lab Results - Last 24 Hours (Table) 05/08/23 05/09/23 Range/Units 13:50 05:32 RBC 3.90 L (4.10-5.20) X 10*6/uL Hgb 11.5 L (12.0-15.0) d/dL Hct 36.5 L (37.2-46.3) % MCHC 31.5 L (32.0-37.0) d/dL Monocytes # 1.08 H (0.20-1.00) X 10*3/uL BUN 19 H (7-17) mg/dL Glucose 116 H (74-99) mg/dL Assessment and Plan Assessment: Facial swelling; dental abscess - Facial CT does not reveal any significant abnormality; white blood count and lactic acid levels are within normal limit - Patient has been previously treated with clindamycin and Levaquin; she is placed on IV vancomycin and azithromycin in ED - Oral maxillofacial consult is placed; appreciate recommendations Uncontrolled pain - Patient has been placed on Percocet 53 25 mg every 4 hours when necessary along with all trend 50 mg every 6 hours when necessary and ibuprofen 400 mg every 6 hours when necessary DVT prophylaxis; SCDs CODE STATUS; full code
--- NOTE | 2023-05-09 14:51 | P.GSCN ---
History of Present Illness Consult date: 05/09/23 Reason for Consult: Lower jaw swelling presumably related to a dental infection Requesting physician: Rolan Ramirez History of present illness: Patient is a 57-year-old female walking in room at the side. Appears in no distress alert and oriented 3 good historian reports she had been on clindamycin multiple times in the past year for sinus infection which resulted in sinus surgery. Also recently was on clindamycin multiple times for a tooth infection resulted in a root canal 3 weeks ago. Denies any intestinal trouble with this antibiotic she is concerned that the antibiotic didn't work. Presented to emergency room yesterday with increased jaw swelling transmitted to the chin. CAT scan obtained did not show any soft tissue changes or areas to drain. Patient does report numbness of the chin bilaterally. Patient reports that the root canal specialist in the root canal saw her postoperatively and was concerned that it tooth on the opposite side perhaps was giving her trouble but the CAT scan in his office did not show any other problems in her jaw. He can return to the clindamycin. Patient has no dyspnea no trouble swallowing and is tolerating orals. Of note the patient did report her had a history with MRSA well she has never MRSA. Review of Systems CC HPI Past Medical History Past Medical History: Sleep Apnea/CPAP/BIPAP Additional Past Medical History / Comment(s): sinus infections, MVP, exposure to mad cow disease in History of Any Multi-Drug Resistant Organisms: None Reported Past Surgical History: Section, Orthopedic Surgery, Tonsillectomy Additional Past Surgical History / Comment(s): biateral oopherectomy, bilateral bunionectomy, bilateral cataracts removed, 12/2022 deviated septum repair Past Anesthesia/Blood Transfusion Reactions: No Reported Reaction Past Psychological History: ADD/ADHD Smoking Status: Never smoker Past Alcohol Use History: None Reported Past Drug Use History: None Reported - Past Family History Mother Family Medical History: Hyperlipidemia, Hypertension, Mitral Valve Prolapse (MVP), Thyroid Disorder Additional Family Medical History / Comment(s): lung CA tx, Father Additional Family Medical History / Comment(s): renal cell cancer at age 72 Medications and Allergies Home Medications Medication Instructions Recorded Confirmed Type Clindamycin [Cleocin] 150 mg PO Q6H 05/08/23 05/08/23 History HYDROcodone/APAP 7.5-325MG [[place] 1 tab PO Q6H PRN 05/08/23 05/08/23 History 7.5-325] Ibuprofen [Motrin] 800 mg PO Q6H PRN 05/08/23 05/08/23 History Levofloxacin [Levaquin] 500 mg PO DAILY 05/08/23 05/08/23 History Progesterone, Micronized 200 mg PO HS 05/08/23 05/08/23 History [Progesterone] Testosterone/Estrogen Pellet 1 dose SQ Q90D 05/08/23 05/08/23 History Implant Allergies Allergy/AdvReac Type Severity Reaction Status Date / Time amoxicillin Allergy Rash/Hives Verified 05/08/23 18:05 Penicillins Allergy Rash/Hives Verified 05/08/23 18:05 Surgical - Exam Vital Signs Temp Pulse Resp BP Pulse Ox 98.5 F 104 H 20 178/86 98 05/08/23 13:31 05/08/23 13:31 05/08/23 13:31 05/08/23 13:31 05/08/23 13:31 Patient mobile and responsive alert and oriented 3 able open her mouth completely no trouble breathing no trouble swallowing. The patient does have fullness of her chin. She reports numbness in this area bilaterally. Chin swelling is nonfluctuant approximately 1/2 cm to 1 cm appears slightly more full on the left side. This does not extend into the submental space. Tooth #19 has a recent excess opening with temporary filling material in a dentist for cleaning. This indicates rct done in last month or so. Tooth #19 is highly mobile indicating infection isolatedto th periodontal Ligament. No floor of nathalie th swelling is noted no redness of the posterior pharynx noted. Offered to inject the patient with 0.5% Marcaine an effort to help control her pain and she agreed. 4 mL of 5% Marcaine administered in a mandibular block. After waiting 5 minutes for anesthesia 18-gauge needle was used near tooth #19 an effort to drop purulent drainage. No drainage was noted but some blood was obtained and sent for cultures and sensitivity. Results - Labs 05/09/23 05:32 05/09/23 05:32 Abnormal Lab Results - Last 24 Hours (Table) 05/09/23 Range/Units 05:32 RBC 3.90 L (4.10-5.20) X 10*6/uL Hgb 11.5 L (12.0-15.0) d/dL Hct 36.5 L (37.2-46.3) % MCHC 31.5 L (32.0-37.0) d/dL Monocytes # 1.08 H (0.20-1.00) X 10*3/uL Diabetes panel 05/09/23 05/09/23 Range/Units 05:32 05:32 Sodium 139 (135-145) mmol/L Potassium 3.7 (3.5-5.5) mmol/L Chloride 102 (96-109) mmol/L Carbon Dioxide 26.1 (21.6-31.8) mmol/L BUN 13.3 (9.0-27.0) mg/dL Creatinine 0.68 0.7 (0.52-1.04) mg/dL Glucose 89 (70-110) mg/dL Calcium 8.7 (8.7-10.3) mg/dL Calcium panel 05/09/23 Range/Units 05:32 Calcium 8.7 (8.7-10.3) mg/dL Pituitary panel 05/09/23 05/09/23 Range/Units 05:32 05:32 Sodium 139 (135-145) mmol/L Potassium 3.7 (3.5-5.5) mmol/L Chloride 102 (96-109) mmol/L Carbon Dioxide 26.1 (21.6-31.8) mmol/L BUN 13.3 (9.0-27.0) mg/dL Creatinine 0.68 0.7 (0.52-1.04) mg/dL Glucose 89 (70-110) mg/dL Calcium 8.7 (8.7-10.3) mg/dL Adrenal panel 05/09/23 05/09/23 Range/Units 05:32 05:32 Sodium 139 (135-145) mmol/L Potassium 3.7 (3.5-5.5) mmol/L Chloride 102 (96-109) mmol/L Carbon Dioxide 26.1 (21.6-31.8) mmol/L BUN 13.3 (9.0-27.0) mg/dL Creatinine 0.68 0.7 (0.52-1.04) mg/dL Glucose 89 (70-110) mg/dL Calcium 8.7 (8.7-10.3) mg/dL Assessment and Plan Assessment: Dental infection possibly due to root canal on tooth #19. Plan: Plan to await consult with infectious disease Dr. May. Suspicions that Eikenella may play a role after the prolonged history of clindamycin antibiotic therapy. The patient's inevitable contact with her and the MRSA has to be considered but clinically does not have a usual presentation. Patients choice to try and keep the tooth was discussed patient agrees she is not improving by tomorrow on extraction must be considered. I recommended nothing by mouth status after midnight an effort to maintain sedation is an option if extraction is recommended. Submitted cultures of the area for aerobic anaerobic culture and sensitivity and TO current treatment if the patient has any decline. Time with Patient: Greater than 30 (administered mandibular block and dicsussed treament options)
[2023-05-09] MEDS: ERTAPENEM 1 GM in SODIUM CHLORIDE 0.9% 50 ML IVPB SCH (22:06)
--- NOTE | 2023-05-09 22:42 | P.CONS ---
History of Present Illness - Reason for Consult Consult date: 05/09/23 Dental abscess, facial edema Requesting physician: Titus Chacon - Chief Complaint Increasing swelling redness to the neck area x few days - History of Present Illness Patient is a 57-year-old female with a past medical history significant for sleep apnea ADHD patient has been dealing with infected tooth to the left lower jaw in this patient who did have a root canal doing about 3 weeks ago patient has been on multiple courses of antibiotics including clindamycin and different strength has the patient is allergic to penicillin however the patient did not have any improvement the patient has reporting increasing swelling and redness to the neck area and pain patient describing the pain to be more of a sharp, 7-8/10 and no radiation, the patient denies having any difficulty swallowing or difficulty breathing patient denies having any nausea vomiting or diarrhea denies high-grade fever however did mention some chills on presentation to the hospital yesterday afternoon the patient was afebrile and no fever have recorded subsequently patient did have a normal white count kidney function was normal liver enzymes are normal patient was started on vancomycin and Zithromax infectious disease was consulted for further management of antibiotic therapy patient did have a CT of the face no significant abnormality seen Review of Systems Positive point and negatives has been mentioned in the HPI, complete review of systems was performed and all other systems are negative Past Medical History Past Medical History: Sleep Apnea/CPAP/BIPAP Additional Past Medical History / Comment(s): sinus infections, MVP, exposure to mad cow disease in History of Any Multi-Drug Resistant Organisms: None Reported Past Surgical History: Section, Orthopedic Surgery, Tonsillectomy Additional Past Surgical History / Comment(s): biateral oopherectomy, bilateral bunionectomy, bilateral cataracts removed, 12/2022 deviated septum repair Past Anesthesia/Blood Transfusion Reactions: No Reported Reaction Past Psychological History: ADD/ADHD Smoking Status: Never smoker Past Alcohol Use History: None Reported Past Drug Use History: None Reported - Past Family History Mother Family Medical History: Hyperlipidemia, Hypertension, Mitral Valve Prolapse (MVP), Thyroid Disorder Additional Family Medical History / Comment(s): lung CA tx, Father Additional Family Medical History / Comment(s): renal cell cancer at age 72 Medications and Allergies Home Medications Medication Instructions Recorded Confirmed Type HYDROcodone/APAP 7.5-325MG [[place] 1 tab PO Q6H PRN 05/08/23 05/08/23 History 7.5-325] Progesterone, Micronized 200 mg PO HS 05/08/23 05/08/23 History [Progesterone] Testosterone/Estrogen Pellet 1 dose SQ Q90D 05/08/23 05/08/23 History Implant Famotidine [Pepcid] 20 mg PO DAILY #30 tablet 05/13/23 Rx Ibuprofen [Motrin] 400 mg PO Q6H PRN #0 05/13/23 05/08/23 Rx hydrALAZINE HCL [Apresoline] 50 mg PO QID #120 tab 05/13/23 Rx Allergies Allergy/AdvReac Type Severity Reaction Status Date / Time amoxicillin Allergy Rash/Hives Verified 05/08/23 18:05 Penicillins Allergy Rash/Hives Verified 05/08/23 18:05 Physical Exam Vitals: Vital Signs Temp Pulse Resp BP Pulse Ox 05/09/23 15:00 98.7 F 94 17 174/96 96 05/09/23 07:00 98.2 F 83 14 167/95 97 05/09/23 03:20 98.2 F 72 16 156/78 98 05/08/23 21:45 98.3 F 85 16 174/96 98 Intake and Output 05/09/23 05/09/23 05/09/23 06:59 14:59 22:59 Intake Total 118 Balance 118 Intake: Oral 118 Other: # Voids 1 1 GENERAL DESCRIPTION: Middle-aged male lying in bed, no distress. No tachypnea or accessory muscle of respiration use. HEENT: Shows Pallor , no scleral icterus. Oral mucous membrane is dry. Did have a swelling to the left lower jaw NECK: Erythema and swelling of the neck area no fluctuation LUNGS: Unlabored breathing. Clear to auscultation anteriorly. No wheeze or crackle. HEART: S1, S2, regular rate and rhythm. No loud murmur ABDOMEN: Soft, no tenderness , guarding or rigidity, no organomegaly EXTREMITIES: No edema of feet. SKIN: No rash, no masses palpable. NEUROLOGICAL: The patient is awake, alert, oriented x3, mood and affect normal. Results CBC & Chem 7: 05/11/23 05:20 05/12/23 06:20 Labs: Abnormal Lab Results - Last 24 Hours (Table) 05/09/23 Range/Units 05:32 RBC 3.90 L (4.10-5.20) X 10*6/uL Hgb 11.5 L (12.0-15.0) d/dL Hct 36.5 L (37.2-46.3) % MCHC 31.5 L (32.0-37.0) d/dL Monocytes # 1.08 H (0.20-1.00) X 10*3/uL Assessment and Plan (1) Dental abscess Status: Acute Code(s): K04.7 - PERIAPICAL ABSCESS WITHOUT SINUS SNOMED Code(s): 863388241 (2) Penicillin allergy Status: Acute Code(s): Z88.0 - ALLERGY STATUS TO PENICILLIN SNOMED Code(s): 90510513 Plan: 1patient is in the hospital with left lower jaw and neck area pain swelling redness in this patient with infected tooth in this patient s/p root canal treatment and has been on multiple courses of clindamycin without any relief we will need to cover for the oral [place] of the mouth to the likely pathogen and less likely gram-positive skin [place] with evidence of neck cellulitis likely lead to her infected tooth. 2patient with a penicillin allergy that will limit the number of antibiotics safe to use. 3culture has been obtained and results will be followed, and check inflammatory markers. 4we will discontinue Zithromax and start the patient on Invanz 1 g daily while waiting for the culture to finalize we will follow on clinical condition and cultures to further adjust medication if needed Thank you for this consultation we will follow the patient along with you Dictation was produced using [employer] dictation software. please excuse any grammatical, word or spelling errors. Time with Patient: Greater than 30
[2023-05-10] MEDS: oxyCODONE-APAP 5-325MG 1 EACH TAB PO PRN ×2 (01:58→10:16)
[2023-05-10] MEDS: IBUPROFEN 400 MG TAB PO PRN ×2 (01:59→10:16)
[2023-05-10] MEDS: VANCOMYCIN 1,750 MG in SODIUM CHLORIDE 0.9% 500 ML 500 ML IVPB SCH ×2 (05:13→18:18)
[2023-05-10] MEDS: HYDROmorphone 0.5 MG/0.5 ML SYRINGE IVP PRN (07:55)
[2023-05-10 07:57] LABS: African American GFR (CKD) >90 (>60 ml/min/1.73 sqM); Non-African American GFR(CKD) >90 (>60 ml/min/1.73 sqM)
--- NOTE | 2023-05-10 08:01 | P.PN ---
Subjective Progress Note Date: 05/10/23 Principal diagnosis: Dental cellulitis Patient has been changed to imipenem and vancomycin per infectious disease. Patient feels she is slightly improved still reports significant swelling of the chin area and pain of the left and right jaw. Numbness has not gone away. Patient still reports inability to swallow and no trouble breathing Objective - Vital Signs Vital signs: Vital Signs Temp 98.9 F 05/10/23 07:00 Pulse 83 05/10/23 07:00 Resp 16 05/10/23 07:00 BP 144/82 05/10/23 07:00 Pulse Ox 97 05/10/23 07:00 FiO2 Intake & Output 05/09/23 05/10/23 05/10/23 18:59 06:59 18:59 Intake Total 118 Balance 118 Intake: Oral 118 Other: # Voids 1 3 - Exam Patient has significant firm swelling of the buccal aspect of her symphysis on her chin. This does not appear fluctuant. She still has significant tenderness of tooth #19 which was the tooth at the root canal. At this point the patient would desire extraction of said tooth versus trying to save it. - Labs CBC & Chem 7: 05/09/23 05:32 05/09/23 05:32 Labs: Abnormal Lab Results - Last 24 Hours (Table) 05/09/23 Range/Units 05:32 RBC 3.90 L (4.10-5.20) X 10*6/uL Hgb 11.5 L (12.0-15.0) d/dL Hct 36.5 L (37.2-46.3) % MCHC 31.5 L (32.0-37.0) d/dL Monocytes # 1.08 H (0.20-1.00) X 10*3/uL Microbiology - Last 24 Hours (Table) 05/08/23 13:44 Blood Culture - Preliminary Blood Assessment and Plan Assessment: Dental infection possibly due to root canal on tooth #19. Cellulitis of the chin Plan: Plan to schedule the patient for the operating room for extraction of the offending tooth. Noted that the patient's he azithromycin was changed to imi penem with continuation of vancomycin. Await cultures Suspicions that Eikenella may play a role after the prolonged history of clindamycin antibiotic therapy. The patient's inevitable contact with her and the MRSA has to be considered but clinically does not have a usual presentation. Patients elastics to extract the tooth and possibly place and extra oral drain in her chin. We will attempt to add on operating room schedule if possible.
[2023-05-10] MEDS: SODIUM CHLORIDE 0.9% 1,000 ML IV SCH ×2 (09:32→21:54)
[2023-05-10] MEDS: ERTAPENEM 1 GM in SODIUM CHLORIDE 0.9% 50 ML IVPB SCH (09:32)
[2023-05-10] MEDS ORDERED: LIDOCAINE 2%-EPI 1:100,000 20 ML VIAL SUBMUCOSAL ONE ×2 (14:07→15:26)
[2023-05-10] MEDS ORDERED: GELATIN SPONGE,ABSORB (SMALL) 1 EACH SPONGE TOPICAL ONE (15:27)
[2023-05-10] MEDS ORDERED: ONDANSETRON 4 MG/2 ML VIAL ONE (15:29)
[2023-05-10] MEDS ORDERED: IV FLUID CONTINUATION 1,000 ML IV ONE (15:30)
[2023-05-10] MEDS ORDERED: SCOPOLAMINE 1 MG/72 HR PATCH TRANSDERM ONE (15:30)
[2023-05-10] MEDS ORDERED: ONDANSETRON 4 MG/2 ML VIAL IVP ONE (15:30)
[2023-05-10] MEDS ORDERED: DEXAMETHASONE SOD PHOSPHATE 4 MG/ML 1 ML VIAL IVP ONE (15:30)
[2023-05-10] MEDS ORDERED: LIDOCAINE 1% INJ 10MG/ML (20 ML MDV) ONE (15:50)
[2023-05-10] MEDS ORDERED: MIDAZOLAM 2 MG/2 ML VIAL ONE (15:50)
[2023-05-10] MEDS ORDERED: fentaNYL (PF) 50 MCG/ML 2 ML AMP ONE (15:50)
[2023-05-10] MEDS ORDERED: PROPOFOL 10 MG/ML 20 ML VIAL IV ONE (15:50)
[2023-05-10] MEDS ORDERED: SUCCINYLCHOLINE CHLORIDE 200 MG/10 ML VIAL IV ONE (15:50)
[2023-05-10] MEDS ORDERED: DEXTROSE 50% SYRINGE 50 ML IVP PRN ×2 (15:58)
--- NOTE | 2023-05-10 16:01 | P.PN ---
Subjective Progress Note Date: 05/10/23 This is a 57-year-old female admitted with dental infection, status post root canal approximately 3 weeks ago, completed antibiotic regimens outpatient, failed outpatient treatment. Developed significant swelling, edema, redness and neck area with significant pain. Evaluated by Dr. Whitney, oral surgeon and infectious disease. Received vancomycin in the ER. Maintained on IV antibiotics, currently Invanz. Blood cultures and oral wound cultures in progress. T-max 99.6. WBC has been within normal limits. denies chest pain, palpitations or shortness of breath. Denies trouble swallowing. Reports pos itive pain/pressure of face, chin and neck. Scheduled for oral surgery. Objective - Vital Signs Vital signs: Vital Signs Temp 98 F 05/10/23 15:15 Pulse 90 05/10/23 15:15 Resp 16 05/10/23 15:15 BP 165/85 05/10/23 15:15 Pulse Ox 96 05/10/23 15:15 FiO2 Intake & Output 05/09/23 05/10/23 05/10/23 18:59 06:59 18:59 Intake Total 118 Balance 118 Intake: Oral 118 Other: # Voids 1 3 - Exam PHYSICAL EXAM: VITAL SIGNS: [As above] GENERAL: Sitting up in bed, no acute distress HEENT: Normocephalic Conjunctivae normal. eyes normal. NECK: Edematous, unable to assess for JVD. Non-fluctuant chin swelling. Trachea appears midline CARDIOVASCULAR: S1, S2 regular. No murmur RESPIRATION: Breath sounds diminished in the bases. No rhonchi or crackles. No bronchial breathing. ABDOMEN: Soft, nontender . No guarding. no masses palpable. No ascites, No hepatosplenomegaly.Bowel sounds heard. LEGS: No edema. no swelling PSYCHIATRY: Alert and oriented X3, mood and affect normal. NERVOUS SYSTEM: Cranial N 2-12 grossly normal. Moves all 4 limbs. DNo focal deficits. Strength and sensation grossly intact.. Skin: Warm and dry, no rash - Labs CBC & Chem 7: 05/09/23 05:32 05/10/23 05:37 Labs: Microbiology - Last 24 Hours (Table) 05/08/23 19:40 Gram Stain - Preliminary Mouth 05/08/23 13:44 Blood Culture - Preliminary Blood Assessment and Plan Assessment: Dental abscess with facial swelling, recent tooth infection status post root canal 3 weeks ago, failed outpatient antibiotic therapy, oral surgery pending Chin/facial, neck cellulitis, secondary to the above Morbid obesity, BMI 37 Obstructive sleep apnea uses CPAP ADD, ADHD Plan: Continue on current medication regime ,monitoring and symptomatic treatment. NPO, maintain IV fluid hydration. Oral surgery pending. Antibiotics as per infectious disease, cultures finalizing. Pain management. PPI added for GI prophylaxis. Patient is ambulatory. Close monitoring of blood sugars. Hemoglobin A1c and insulin sliding scale ordered. The impression and plan of care has been dictated as directed. : I performed a history and examination of this patient, discussed the same with the dictator. I agree with the dictator's note ,documented as a scribe. Any additional findings or plans will be noted.
--- NOTE | 2023-05-10 16:44 | P.OP ---
Date of Procedure: 05/10/23 Preoperative Diagnosis: Dental abscess Chin cellulitis Postoperative Diagnosis: Same Procedure(s) Performed: Surgical extraction of tooth #19 Extraoral drainage of submental area Implants: None Anesthesia: SOLA Surgeon: Carmelo Whitney Estimated Blood Loss (ml): 4 IV fluids (ml): 200 Urine output (ml): 0 Pathology: other Condition: stable Disposition: floor Indications for Procedure: Patient presented with swelling of the face 3 weeks after root canal. The patient had multiple courses of clindamycin therapy and was not getting better. In fact her swelling head removed from around her tooth #19 area more anterior in her mandible as well as starting to cross the midline. She regular presentation precipitated treatment with strong IV antibiotics with which there was minimal improvement so decision was made to remove the root canal tooth and placed next oral drain in an effort to help the IV antibiotics achieve resolution of this infection/cellulitis. Patient and seen in the preoperative holding area consent reviewed with the patient including but not limited to bleeding pain infection swelling need for additional procedures. Actual drainage scar discussed need to extract tooth #19 as well as possibly other extractions in the future. Patient agreed with the plan and agreed to proceed with the procedure. Operative Findings: Minimal discharge from the extraoral drain Description of Procedure: Patient was intubated orally with the glide scope without difficulty. See anesthesia record Patient was prepped and draped in usual fashion for extraoral drain including Betadine spray and surgical towels. 1 mL of 2% lidocaine with epinephrine administered subcutaneously in the midline under the submental space. Cutaneous fold noted an incision of 1 cm placed through the subcutaneous layer in a cutaneous fold to hide the scar. Blunt dissection up to the mandibular border with slight amount of pus and blood coming from the wound. Blunt dissection around the area in an effort to get more pus out of the chin and some pus was able to be expressed. This pus was collected and cultured for sensitivity. Of note this is the third culture and can be canceled a feeler culture comes back. The intraoral part of the procedure was then dressed with the patient's mouth open with a bite block throat pack placed tooth #19 was addressed with 2 buccal and lingual full-thickness flaps the tooth was luxated and a small amount of bone removed with the forcep in order to deliver the tooth. More bone and creation tissue was scraped from the socket slight amount of pus from the socket. This confirmed that tooth #19 was in fact the culprit of this cellulitis and infection. Throat pack was removed bite block was removed the extraoral wound was dressed a [place] drain was sutured and trimmed. Disposition of patient to the floor resume previous orders.
[2023-05-10] MEDS ORDERED: HYDROmorphone 0.5 MG/0.5 ML SYRINGE IVP ONE ×2 (16:57→17:07)
[2023-05-10 17:58] LABS: Glucose,Whole Blood 98 mg/dL (70-110)
[2023-05-10] MEDS: INSULIN ASPART (NovoLOG) 100 UNIT/ML VIAL SQ SCH ×2 (18:15→20:31)
[2023-05-10] MEDS: hydrALAZINE HCL 50 MG TAB PO SCH ×2 (18:18→20:31)
[2023-05-10] MEDS: PANTOPRAZOLE 40 MG/10 ML VIAL IVP SCH (18:21)
[2023-05-10] MEDS: NON FORMULARY DRUG (Progesterone, Micronized [Progesterone] 200 MG Capsule) PO SCH (19:51)
[2023-05-10 20:32] LABS: Glucose,Whole Blood 111 mg/dL (70-110)
[2023-05-11] MEDS: IBUPROFEN 400 MG TAB PO PRN (03:21)
[2023-05-11] MEDS: oxyCODONE-APAP 5-325MG 1 EACH TAB PO PRN (03:22)
[2023-05-11] MEDS ORDERED: VANCOMYCIN TROUGH DUE 1 EACH MISC MISCELLANE ONE (05:00)
[2023-05-11] MEDS: INSULIN ASPART (NovoLOG) 100 UNIT/ML VIAL SQ SCH ×4 (06:43→20:25)
[2023-05-11 06:44] LABS: Glucose,Whole Blood 99 mg/dL (70-110)
[2023-05-11] MEDS: VANCOMYCIN 1,750 MG in SODIUM CHLORIDE 0.9% 500 ML 500 ML IVPB SCH (07:24)
[2023-05-11] MEDS: traMADol 50 MG TAB PO PRN (08:09)
[2023-05-11] MEDS: hydrALAZINE HCL 50 MG TAB PO SCH ×4 (08:09→21:08)
[2023-05-11 09:14] LABS: Basophils # (A) 0.01 X 10*3/uL (0.00-0.10); Basophils % (A) 0.1 %; Eosinophils # (A) 0 X 10*3/uL (0.04-0.35); Eosinophils % (A) 0 %; HCT 32.1 % (37.2-46.3); HGB 10.5 d/dL (12.0-15.0); Lymphocytes # (A) 0.93 X 10*3/uL (0.90-5.00); Lymphocytes % (A) 11.7 %; MCH 29.4 pg (27.0-32.0); MCHC 32.7 d/dL (32.0-37.0); MCV 89.9 FL (80.0-97.0); Mean Platelet Volume 10.4 FL (9.5-12.2); Monocytes # (A) 0.38 X 10*3/uL (0.20-1.00); Monocytes % (A) 4.8 %; NRBC Per 100 WBC 0 X 10*3/uL (0.00-0.01); Neutrophils # (A) 6.59 X 10*3/uL (1.80-7.70); Neutrophils % (A) 82.8 %; Platelet Count 374 X 10*3/uL (140-440); RBC 3.57 X 10*6/uL (4.10-5.20); RDW 11.9 % (11.5-14.5); WBC 7.96 X 10*3/uL (4.50-10.00)
[2023-05-11] MEDS: PANTOPRAZOLE 40 MG/10 ML VIAL IVP SCH (09:17)
[2023-05-11 09:37] LABS: Blood Urea Nitrogen 12.9 mg/dL (9.0-27.0); Calcium 8.6 mg/dL (8.7-10.3); Carbon Dioxide 23.8 mmol/L (21.6-31.8); Chloride 103 mmol/L (96-109); Glucose 108 mg/dL (70-110); Potassium 3.7 mmol/L (3.5-5.5); Sodium 139 mmol/L (135-145)
[2023-05-11] MEDS: ERTAPENEM 1 GM in SODIUM CHLORIDE 0.9% 50 ML IVPB SCH (10:44)
[2023-05-11 12:33] LABS: Glucose,Whole Blood 150 mg/dL (70-110)
--- NOTE | 2023-05-11 12:37 | P.PN ---
Subjective Progress Note Date: 05/11/23 This is a 57-year-old female admitted with dental infection, status post root canal approximately 3 weeks ago, completed antibiotic regimens outpatient, failed outpatient treatment. Developed significant swelling, edema, redness and neck area with significant pain. Evaluated by Dr. Whitney, oral surgeon and infectious disease. Received vancomycin in the ER. Maintained on IV antibiotics, currently Invanz. Blood cultures and oral wound cultures in progress. T-max 99.6. WBC has been within normal limits. denies chest pain, palpitations or shortness of breath. Denies trouble swallowing. Reports pos itive pain/pressure of face, chin and neck. Scheduled for oral surgery. 05/11/2023 status post surgical extraction of tooth #19, extraoral drainage of submental area, pus cultured, Wiliam drain sutured. tolerated procedure well. Decreased edema, eating practice this morning, reporting less pain. Denies difficulty with swallowing. Denies chest pain, palpitations or shortness of breath. Maintaining O2 sats in the mid 90s on room air. Denies chest pain, palpitations or shortness of breath. Continues on antibiotics as per infectious disease. Afebrile, normal WBC. BUN 12.9, creatinine 0.5 Objective - Vital Signs Vital signs: Vital Signs Temp 98.2 F 05/11/23 07:00 Pulse 98 05/11/23 07:00 Resp 17 05/11/23 07:00 BP 151/78 05/11/23 07:00 Pulse Ox 95 05/11/23 07:00 FiO2 Intake & Output 05/10/23 05/11/23 05/11/23 18:59 06:59 18:59 Intake Total 0 474 Output Total 4 Balance -4 474 Weight 108.862 kg Intake: IV 0 Oral 474 Output: Estimated Blood Loss 4 Other: # Voids 2 3 - Exam PHYSICAL EXAM: VITAL SIGNS: [As above] GENERAL: Alert and oriented 3, Sitting up in bed, no acute distress HEENT: Normocephalic Conjunctivae normal. eyes normal. NECK: Decreased edema, unable to assess for JVD. Decreased chin swelling. Dressing clean dry and intact. Trachea midline CARDIOVASCULAR: S1, S2 regular. No murmur RESPIRATION: Breath sounds diminished in the bases. No rhonchi or crackles. No wheezing. ABDOMEN: Soft, nontender . No guarding. no masses palpable. +BS. LEGS: No edema. no swelling NERVOUS SYSTEM: Cranial N 2-12 grossly normal. No focal deficits. Strength and sensation grossly intact. Skin: Warm and dry, no rash - Labs CBC & Chem 7: 05/11/23 05:20 05/11/23 05:20 Labs: Abnormal Lab Results - Last 24 Hours (Table) 05/10/23 05/11/23 05/11/23 Range/Units 20:31 05:20 05:20 RBC 3.57 L (4.10-5.20) X 10*6/uL Hgb 10.5 L (12.0-15.0) d/dL Hct 32.1 L (37.2-46.3) % Eosinophils # 0 L (0.04-0.35) X 10*3/uL Anion Gap 12.20 H (4.00-12.00) mmol/L Creatinine 0.5 L (0.6-1.5) mg/dL BUN/Creatinine Ratio 25.80 H (12.00-20.00) Ratio POC Glucose (mg/dL) 111 H (70-110) mg/dL Calcium 8.6 L (8.7-10.3) mg/dL Microbiology - Last 24 Hours (Table) 05/08/23 19:40 Gram Stain - Final Mouth Wound Culture - Final 05/08/23 13:44 Blood Culture - Preliminary Blood 05/10/23 16:15 Gram Stain - Preliminary Neck 05/09/23 14:25 Gram Stain - Preliminary Face Wound Culture - Preliminary Assessment and Plan Assessment: Dental abscess with facial swelling, recent tooth infection status post root canal 3 weeks ago, failed outpatient antibiotic therapy, status post surgical extraction of tooth #19, extraoral drainages submental area. Chin/facial, neck cellulitis, secondary to the above Morbid obesity, BMI 37 Obstructive sleep apnea uses CPAP ADD, ADHD Hemoglobin A1c 6.0 Plan: Continue on current medication regime ,monitoring and symptomatic treatment.Maintain IV fluid hydration. Cultures finalizing .Antibiotics as per infectious disease.Pain management. Continue close monitoring of blood sugars. The impression and plan of care has been dictated as directed. : I performed a history and examination of this patient, discussed the same with the dictator. I agree with the dictator's note ,documented as a scribe. Any additional findings or plans will be noted.
[2023-05-11] MEDS: SODIUM CHLORIDE 0.9% 1,000 ML IV SCH (12:49)
--- NOTE | 2023-05-11 14:31 | P.PN ---
Subjective Progress Note Date: 05/10/23 Principal diagnosis: Neck cellulitis/infected tooth Patient is a 57-year-old female with a past medical history significant for sleep apnea ADHD patient has been dealing with infected tooth to the left lower jaw in this patient who did have a root canal doing about 3 weeks ago , presented to hospital with worsening pain swelling and redness to the neck area CT of the face did not show any significant abnormality. On today's evaluation that is 05/10/2023, the patient denies any fever or any chills , the patient is breathing comfortably on room air , the patient denies chest pain or cough, patient denies nausea or vomiting and no abdominal pain, no diarrhea , neck area swelling redness slightly decreased Patient did have a white count of 8.95 as of yesterday, creatinine 0.56 Objective - Vital Signs Vital signs: Vital Signs Temp 98.4 F 05/10/23 16:27 Pulse 94 05/10/23 16:42 Resp 16 05/10/23 16:42 BP 162/79 05/10/23 16:42 Pulse Ox 98 05/10/23 16:42 FiO2 Intake & Output 05/09/23 05/10/23 05/10/23 18:59 06:59 18:59 Intake Total 118 0 Output Total 4 Balance 118 -4 Intake: IV 0 Oral 118 Output: Estimated Blood Loss 4 Other: # Voids 1 3 2 - Exam GENERAL DESCRIPTION: A middle-age female up in the bed in no distress HEENT : Neck area swelling and redness no drainage RESPIRATORY SYSTEM: Unlabored breathing , decreased breath sounds at bases HEART: S1 S2 regular rate and rhythm , ABDOMEN: Soft , no tenderness EXTREMITIES: No edema feet - Labs CBC & Chem 7: 05/11/23 05:20 05/11/23 05:20 Labs: Microbiology - Last 24 Hours (Table) 05/09/23 14:25 Gram Stain - Preliminary Face 05/08/23 19:40 Gram Stain - Preliminary Mouth 05/08/23 13:44 Blood Culture - Preliminary Blood Assessment and Plan (1) Penicillin allergy Current Visit: Yes Status: Acute Code(s): Z88.0 - SNOMED Code(s): 15711665 (2) Dental abscess Current Visit: Yes Status: Acute Code(s): K04.7 - PERIAPICAL ABSCESS WITHOUT SINUS SNOMED Code(s): 353114933 Plan: 1patient is in the hospital with left lower jaw and neck area pain swelling redness in this patient with infected tooth in this patient s/p root canal treatment and has been on multiple courses of clindamycin without any relief we will need to cover for the oral [place] of the mouth to the likely pathogen and less likely gram-positive skin [place] with evidence of neck cellulitis likely lead to her infected tooth. 2patient with a penicillin allergy that will limit the number of antibiotics safe to use. 3culture has been obtained and results are currently pending 4we will continue the patient on Invanz 1 g daily while waiting for the culture to finalize and monitor clinical course closely Dictation was produced using [email or web address] dictation software. please excuse any grammatical, word or spelling errors. Time with Patient: Less than 30
[2023-05-11] MEDS: ACETAMINOPHEN TAB 325 MG TAB PO PRN (15:57)
[2023-05-11] MEDS ORDERED: VANCOMYCIN 1,750 MG in SODIUM CHLORIDE 0.9% 500 ML 500 ML IVPB SCH (16:00)
--- NOTE | 2023-05-11 17:10 | P.PN ---
Subjective Progress Note Date: 05/11/23 Principal diagnosis: Neck cellulitis/infected tooth Patient is a 57-year-old female with a past medical history significant for sleep apnea ADHD patient has been dealing with infected tooth to the left lower jaw in this patient who did have a root canal doing about 3 weeks ago , presented to hospital with worsening pain swelling and redness to the neck area CT of the face did not show any significant abnormality. Patient is status post extraction of tooth #19 on 05/10/2023 On today's evaluation that is 05/11/2023, the patient remains to be afebrile, the patient is breathing comfortably without need for supplemental oxygen , the patient denies chest pain and no significant cough, patient denies nausea/vomiting /diarrhea and denies abdominal pain, the patient neck area swelling redness slightly decreased Patient did have a white count of 7.96, creatinine is 0.5, cultures are currently pending Objective - Vital Signs Vital signs: Vital Signs Temp 98.2 F 05/11/23 07:00 Pulse 98 05/11/23 07:00 Resp 17 05/11/23 07:00 BP 151/78 05/11/23 07:00 Pulse Ox 95 05/11/23 07:00 FiO2 Intake & Output 05/10/23 05/11/23 05/11/23 18:59 06:59 18:59 Intake Total 0 474 Output Total 4 Balance -4 474 Weight 108.862 kg Intake: IV 0 Oral 474 Output: Estimated Blood Loss 4 Other: # Voids 2 3 - Exam GENERAL DESCRIPTION: A middle-age female up in the bed in no distress HEENT : Neck area swelling and redness has decreased in intensity RESPIRATORY SYSTEM: Unlabored breathing , decreased breath sounds at bases HEART: S1 S2 regular rate and rhythm , ABDOMEN: Soft , no tenderness EXTREMITIES: No edema feet - Labs CBC & Chem 7: 05/11/23 05:20 05/11/23 05:20 Labs: Abnormal Lab Results - Last 24 Hours (Table) 05/10/23 05/11/23 05/11/23 Range/Units 20:31 05:20 05:20 RBC 3.57 L (4.10-5.20) X 10*6/uL Hgb 10.5 L (12.0-15.0) d/dL Hct 32.1 L (37.2-46.3) % Eosinophils # 0 L (0.04-0.35) X 10*3/uL Anion Gap 12.20 H (4.00-12.00) mmol/L Creatinine 0.5 L (0.6-1.5) mg/dL BUN/Creatinine Ratio 25.80 H (12.00-20.00) Ratio POC Glucose (mg/dL) 111 H (70-110) mg/dL Calcium 8.6 L (8.7-10.3) mg/dL Microbiology - Last 24 Hours (Table) 05/08/23 19:40 Gram Stain - Final Mouth Wound Culture - Final 05/08/23 13:44 Blood Culture - Preliminary Blood 05/10/23 16:15 Gram Stain - Preliminary Neck 05/09/23 14:25 Gram Stain - Preliminary Face Wound Culture - Preliminary Assessment and Plan (1) Dental abscess Current Visit: Yes Status: Acute Code(s): K04.7 - PERIAPICAL ABSCESS WITHOUT SINUS SNOMED Code(s): 090041790 (2) Penicillin allergy Current Visit: Yes Status: Acute Code(s): Z88.0 - ALLERGY STATUS TO PENICILLIN SNOMED Code(s): 03801373 Plan: 1patient is in the hospital with left lower jaw and neck area pain swelling redness in this patient with infected tooth in this patient s/p root canal treatment and has been on multiple courses of clindamycin without any relief we will need to cover for the oral [place] of the mouth to the likely pathogen and less likely gram-positive skin [place] with evidence of neck cellulitis likely lead to her infected tooth. 2patient with a penicillin allergy that will limit the number of antibiotics safe to use. 3culture has been obtained and results are currently pending 4we will continue the patient on Invanz 1 g daily however discontinue vancomycin, will likely need a PICC line for outpatient IV antibiotics discussed with the and dental surgeon Dictation was produced using [employer] dictation software. please excuse any grammatical, word or spelling errors. Time with Patient: Less than 30
[2023-05-11 17:11] LABS: Glucose,Whole Blood 89 mg/dL (70-110)
--- NOTE | 2023-05-11 18:02 | P.PN ---
Progress Note - Text Progress Note Date: 05/11/23 Patient and up at the bedside. Patient's eating lunch without difficulty. Soft mechanical diet. Reports pain level much improved after tooth extraction and external incision and drainage. Feels that numbness in the chin is artery improving especially on the right. Reports no trouble breathing or swallowing. Patient reports her dressing change at 5 AM did not soak through the bandage. Patient feels that discharge is still coming from the drain at the same rate as it did last night Limited physical exam Patient has slight wrinkling of the children tissue which indicate swelling is improved. Redness and warmth of the neck and chin has improved. Extraction socket 19 closed no weeping intraoral swelling has improved. Assessment mental cellulitis has improved with extraoral drainage. Tooth extraction site in 19 is healing within normal limits Plan patient continues to improve on current IV antibiotic therapy. Recommend await cultures to guide therapy. Discharge planning would be acceptable to remove drain as an outpatient on 24-48 hours.
[2023-05-11 20:22] LABS: Glucose,Whole Blood 111 mg/dL (70-110)
[2023-05-11] MEDS: NON FORMULARY DRUG (Progesterone, Micronized [Progesterone] 200 MG Capsule) PO SCH (21:08)
[2023-05-12] MEDS: oxyCODONE-APAP 5-325MG 1 EACH TAB PO PRN (02:28)
[2023-05-12 06:26] LABS: Glucose,Whole Blood 87 mg/dL (70-110)
[2023-05-12] MEDS: INSULIN ASPART (NovoLOG) 100 UNIT/ML VIAL SQ SCH ×4 (06:39→20:59)
[2023-05-12 06:49] LABS: African American GFR (CKD) >90 (>60 ml/min/1.73 sqM); Non-African American GFR(CKD) >90 (>60 ml/min/1.73 sqM)
[2023-05-12] MEDS ORDERED: VANCOMYCIN TROUGH DUE 1 EACH MISC MISCELLANE ONE (07:00)
[2023-05-12] MEDS: ERTAPENEM 1 GM in SODIUM CHLORIDE 0.9% 50 ML IVPB SCH (09:54)
[2023-05-12] MEDS: hydrALAZINE HCL 50 MG TAB PO SCH ×4 (09:54→22:51)
[2023-05-12] MEDS: PANTOPRAZOLE 40 MG/10 ML VIAL IVP SCH (09:54)
[2023-05-12] MEDS: ACETAMINOPHEN TAB 325 MG TAB PO PRN ×2 (10:01→19:39)
[2023-05-12] MEDS: IBUPROFEN 400 MG TAB PO PRN ×2 (10:02→19:39)
--- NOTE | 2023-05-12 11:55 | P.PN ---
Subjective Progress Note Date: 05/12/23 This is a 57-year-old female admitted with dental infection, status post root canal approximately 3 weeks ago, completed antibiotic regimens outpatient, failed outpatient treatment. Developed significant swelling, edema, redness and neck area with significant pain. Evaluated by Dr. Whitney, oral surgeon and infectious disease. Received vancomycin in the ER. Maintained on IV antibiotics, currently Invanz. Blood cultures and oral wound cultures in progress. T-max 99.6. WBC has been within normal limits. denies chest pain, palpitations or shortness of breath. Denies trouble swallowing. Reports pos itive pain/pressure of face, chin and neck. Scheduled for oral surgery. 05/11/2023 status post surgical extraction of tooth #19, extraoral drainage of submental area, pus cultured, Wiliam drain sutured. tolerated procedure well. Decreased edema, eating practice this morning, reporting less pain. Denies difficulty with swallowing. Denies chest pain, palpitations or shortness of breath. Maintaining O2 sats in the mid 90s on room air. Denies chest pain, palpitations or shortness of breath. Continues on antibiotics as per infectious disease. Afebrile, normal WBC. BUN 12.9, creatinine 0.5. 05/12/2023 sitting up in chair, eating breakfast. Denies difficulty eating or swallowing. Denies cough. Blood sugars controlled .Maintained on Invanz with vancomycin discontinued. Pain,edema, redness continues to improve. Mild decreased sensation of chin reported. Culture results pending, potential PICC line as per ID. Afebrile. Denies chest pain, palpitations or shortness of breath. Maintaining O2 sats in the high 90s on room air. Objective - Vital Signs Vital signs: Vital Signs Temp 98.3 F 05/12/23 07:00 Pulse 76 05/12/23 07:00 Resp 16 05/12/23 08:00 BP 144/83 05/12/23 07:00 Pulse Ox 96 05/12/23 07:00 FiO2 Intake & Output 05/11/23 05/12/23 05/12/23 18:59 06:59 18:59 Intake Total 592 Balance 592 Intake: Oral 592 Other: Voiding Method Toilet # Voids 2 1 - Exam PHYSICAL EXAM: VITAL SIGNS: [As above] GENERAL: Alert and oriented 3, Sitting up in bed, no acute distress HEENT: Normocephalic Conjunctivae normal. eyes normal. NECK: Decreased edema, unable to assess for JVD. Decreased chin swelling. Dressing clean dry and intact. Trachea midline CARDIOVASCULAR: S1, S2 regular. No murmur RESPIRATION: Breath sounds diminished in the bases. No rhonchi or crackles. No wheezing. ABDOMEN: Soft, nontender . No guarding. no masses palpable. +BS. LEGS: No edema. no swelling NERVOUS SYSTEM: Cranial N 2-12 grossly normal. No focal deficits. Strength and sensation grossly intact. Skin: Warm and dry, no rash Microbiology 05/08/23 13:44 Blood Blood Culture - Preliminary 05/09/23 14:25 Face Anaerobic Culture - Preliminary 05/10/23 16:15 Neck Gram Stain - Preliminary 05/10/23 16:15 Neck Wound Culture - Preliminary 05/08/23 19:40 Mouth Gram Stain - Final 05/08/23 19:40 Mouth Wound Culture - Final 05/09/23 14:25 Face Gram Stain - Preliminary 05/09/23 14:25 Face Wound Culture - Preliminary - Labs CBC & Chem 7: 05/11/23 05:20 05/12/23 06:20 Labs: Abnormal Lab Results - Last 24 Hours (Table) 05/11/23 05/11/23 Range/Units 12:32 20:21 POC Glucose (mg/dL) 150 H 111 H (70-110) mg/dL Microbiology - Last 24 Hours (Table) 05/08/23 13:44 Blood Culture - Preliminary Blood 05/09/23 14:25 Anaerobic Culture - Preliminary Face 05/10/23 16:15 Gram Stain - Preliminary Neck Wound Culture - Preliminary 05/08/23 19:40 Gram Stain - Final Mouth Wound Culture - Final Assessment and Plan Assessment: Dental abscess with facial swelling, recent tooth infection status post root canal 3 weeks ago, failed outpatient antibiotic therapy, status post surgical extraction of tooth #19, extraoral drainages submental area. Chin/facial, neck cellulitis, secondary to the above Morbid obesity, BMI 37 Obstructive sleep apnea uses CPAP ADD, ADHD Hemoglobin A1c 6.0 Plan: Continue on current medication regime ,monitoring and symptomatic treatment. Cultures finalizing,antibiotics as per infectious disease. Potential PICC line. Pain management. The impression and plan of care has been dictated as directed. : I performed a history and examination of this patient, discussed the same with the dictator. I agree with the dictator's note ,documented as a scribe. Any additional findings or plans will be noted.
--- NOTE | 2023-05-12 12:29 | P.PN ---
Subjective Progress Note Date: 05/12/23 Principal diagnosis: Neck cellulitis/infected tooth Patient is a 57-year-old female with a past medical history significant for sleep apnea ADHD patient has been dealing with infected tooth to the left lower jaw in this patient who did have a root canal doing about 3 weeks ago , presented to hospital with worsening pain swelling and redness to the neck area CT of the face did not show any significant abnormality. Patient is status post extraction of tooth #19 on 05/10/2023 On today's evaluation that is 05/12/2023, the patient continues to be afebrile, the patient is breathing comfortably on room air, the patient denies chest pain and no cough, patient denies abdominal pain, no nausea/vomiting /diarrhea , the patient complaining of slight more swelling to the chin and lower jaw area but no drainage Patient did have a white count of 7.96 as of yesterday, creatinine is 0.56, cultures are currently pending Objective - Vital Signs Vital signs: Vital Signs Temp 98.3 F 05/12/23 07:00 Pulse 76 05/12/23 07:00 Resp 16 05/12/23 07:00 BP 144/83 05/12/23 07:00 Pulse Ox 96 05/12/23 07:00 FiO2 Intake & Output 05/11/23 05/12/23 05/12/23 18:59 06:59 18:59 Intake Total 592 Balance 592 Intake: Oral 592 Other: # Voids 2 1 - Exam GENERAL DESCRIPTION: A middle-age female up in the bed in no distress HEENT : Neck area swelling and redness has decreased in intensity RESPIRATORY SYSTEM: Unlabored breathing , decreased breath sounds at bases HEART: S1 S2 regular rate and rhythm , ABDOMEN: Soft , no tenderness EXTREMITIES: No edema feet - Labs CBC & Chem 7: 05/11/23 05:20 05/12/23 06:20 Labs: Abnormal Lab Results - Last 24 Hours (Table) 05/11/23 05/11/23 Range/Units 12:32 20:21 POC Glucose (mg/dL) 150 H 111 H (70-110) mg/dL Microbiology - Last 24 Hours (Table) 05/08/23 13:44 Blood Culture - Preliminary Blood 05/09/23 14:25 Anaerobic Culture - Preliminary Face 05/10/23 16:15 Gram Stain - Preliminary Neck Wound Culture - Preliminary 05/08/23 19:40 Gram Stain - Final Mouth Wound Culture - Final Assessment and Plan (1) Dental abscess Current Visit: Yes Status: Acute Code(s): K04.7 - PERIAPICAL ABSCESS WITHOUT SINUS SNOMED Code(s): 751926118 (2) Penicillin allergy Current Visit: Yes Status: Acute Code(s): Z88.0 - ALLERGY STATUS TO PENICILLIN SNOMED Code(s): 30487397 Plan: 1patient is in the hospital with left lower jaw and neck area pain swelling redness in this patient with infected tooth in this patient s/p root canal treatment and has been on multiple courses of clindamycin without any relief we will need to cover for the oral [place] of the mouth to the likely pathogen and less likely gram-positive skin [place] with evidence of neck cellulitis likely lead to her infected tooth. 2patient with a penicillin allergy that will limit the number of antibiotics safe to use. 3culture has been obtained and results are currently pending 4patient will continue on Invanz 1 g daily , order midline for outpatient IV antibiotics we'll hold discharge today because of her symptoms of swelling and repeat his CBC and inflammatory markers with a.m. labs Dictation was produced using [employer] dictation software. please excuse any grammatical, word or spelling errors. Time with Patient: Less than 30
[2023-05-12 12:56] LABS: Glucose,Whole Blood 96 mg/dL (70-110)
[2023-05-12 17:30] LABS: Glucose,Whole Blood 100 mg/dL (70-110)
[2023-05-12] MEDS: NON FORMULARY DRUG (Progesterone, Micronized [Progesterone] 200 MG Capsule) PO SCH (19:25)
[2023-05-12 20:55] LABS: Glucose,Whole Blood 94 mg/dL (70-110)
[2023-05-13 06:03] LABS: Glucose,Whole Blood 89 mg/dL (70-110)
[2023-05-13] MEDS: INSULIN ASPART (NovoLOG) 100 UNIT/ML VIAL SQ SCH ×2 (06:04→13:23)
[2023-05-13] MEDS: ACETAMINOPHEN TAB 325 MG TAB PO PRN (06:18)
[2023-05-13] MEDS: IBUPROFEN 400 MG TAB PO PRN (06:19)
[2023-05-13 07:51] VITALS: BP 149/87; PULSE 77; RESP 16; TEMP 98.2
--- NOTE | 2023-05-13 08:02 | P.PN ---
Progress Note - Text Progress Note Date: 05/13/23 s Pt doing well no distress. reports slight swelling over night on right lip distant from tooth extraction. pt now has pic line. reports slight dc over night from drain. o slight dc this am on dressing. chin area still firm but less swollen. reming exam unremarkable. A slow resolution of cellulitis all three gram stains had no orginisms only anerobic pending. atypicla presentation sugests agressive bacteria possiably complicated with yeast P ok for dc if cleared and agree with plan for IV outpatient plan to DC drain tomorrow in office apt has been made
[2023-05-13] MEDS: hydrALAZINE HCL 50 MG TAB PO SCH (08:34)
[2023-05-13] MEDS: PANTOPRAZOLE 40 MG/10 ML VIAL IVP SCH (08:34)
[2023-05-13] MEDS: ERTAPENEM 1 GM in SODIUM CHLORIDE 0.9% 50 ML IVPB SCH (08:34)
--- NOTE | 2023-05-13 11:55 | P.DS ---
Providers Date of admission: 05/11/23 14:43 Expected date of discharge: 05/13/23 Attending physician: Ernst Montanez Consults: 05/08/23 16:49 Consult Physician Routine Consulting Provider: Carmelo Whitney Consult Reason/Comments: Dental abscess Do you want consulting provider notified?: Yes 05/09/23 11:37 Consult Physician Routine Consulting Provider: Tsering May Consult Reason/Comments: dental abcess/facial edema Do you want consulting provider notified?: Yes Primary care physician: Ernst Montanez [facility] Course: Final Diagnoses: Dental abscess with facial swelling, recent tooth infection status post root canal 3 weeks ago, failed outpatient antibiotic therapy, status post surgical extraction of tooth #19, extraoral drainages submental area. Chin/facial, neck cellulitis, secondary to the above Morbid obesity, BMI 37 Obstructive sleep apnea uses CPAP ADD, ADHD Hemoglobin A1c 6.0 Hospital course:This is a 57-year-old female admitted with dental infection, status post root canal approximately 3 weeks ago, completed antibiotic regimens outpatient, failed outpatient treatment. Developed significant swelling, edema, redness and neck area with significant pain. Evaluated by Dr. Whitney, oral surgeon and infectious disease. Received vancomycin in the ER. Maintained on IV antibiotics, currently Invanz. Blood cultures and oral wound cultures in progress. T-max 99.6. WBC has been within normal limits. denies chest pain, palpitations or shortness of breath. Denies trouble swallowing. Reports positive pain/pressure of face, chin and neck. Scheduled for oral surgery. 05/11/2023 status post surgical extraction of tooth #19, extraoral drainage of submental area, pus cultured, Wiliam drain sutured. tolerated procedure well. Decreased edema, eating practice this morning, reporting less pain. Denies difficulty with swallowing. Denies chest pain, palpitations or shortness of breath. Maintaining O2 sats in the mid 90s on room air. Denies chest pain, palpitations or shortness of breath. Continues on antibiotics as per infectious disease. Afebrile, normal WBC. BUN 12.9, creatinine 0.5. 05/12/2023 sitting up in chair, eating breakfast. Denies difficulty eating or swallowing. Denies cough. Blood sugars controlled .Maintained on Invanz with vancomycin discontinued. Pain,edema, redness continues to improve. Mild decreased sensation of chin reported. Culture results pending, potential PICC line as per ID. Afebrile. Denies chest pain, palpitations or shortness of breath. Maintaining O2 sats in the high 90s on room air. Significant clinical improvement. Midline catheter placed for DC IV antibiotics. Cultures finalizing. Afebrile. Denies chest pain, palpitations or shortness of breath. Maintaining O2 sats in the high 90s on room air. Good diet intake, denies nausea vomiting or diarrhea. Blood sugars controlled. Cleared by oral surgeon Dr. Whitney with plans to DC drain outpatient in clinic. Patient will be discharged home today in a stable condition with guarded prognosis pending finalized cultures, final DC antibiotics and clearance per infectious disease. Microbiology 05/10/23 16:15 Neck Gram Stain - Final 05/10/23 16:15 Neck Wound Culture - Final 05/08/23 13:44 Blood Blood Culture - Preliminary 05/09/23 14:25 Face Anaerobic Culture - Preliminary 05/08/23 19:40 Mouth Gram Stain - Final 05/08/23 19:40 Mouth Wound Culture - Final 05/09/23 14:25 Face Gram Stain - Preliminary 05/09/23 14:25 Face Wound Culture - Preliminary The impression and plan of care has been dictated as directed. : I performed a history and examination of this patient, discussed the same with the dictator. I agree with the dictator's note ,documented as a scribe. Any additional findings or plans will be noted. Patient Condition at Discharge: Stable Plan - Discharge Summary New Discharge Prescriptions: New hydrALAZINE HCL [Apresoline] 50 mg PO QID #120 tab Famotidine [Pepcid] 20 mg PO DAILY #30 tablet Continue Progesterone, Micronized [Progesterone] 200 mg PO HS Testosterone/Estrogen Pellet Implant 1 dose SQ Q90D HYDROcodone/APAP 7.5-325MG [[place] 7.5-325] 1 tab PO Q6H PRN PRN Reason: Moderate Pain (Scale 4 To 6) Changed Ibuprofen [Motrin] 400 mg PO Q6H PRN #0 PRN Reason: Pain Discontinued Levofloxacin [Levaquin] 500 mg PO DAILY Clindamycin [Cleocin] 150 mg PO Q6H Discharge Medication List HYDROcodone/APAP 7.5-325MG [[place] 7.5-325] 1 tab PO Q6H PRN 05/08/23 [History] Progesterone, Micronized [Progesterone] 200 mg PO HS 05/08/23 [History] Testosterone/Estrogen Pellet Implant 1 dose SQ Q90D 05/08/23 [History] Famotidine [Pepcid] 20 mg PO DAILY #30 tablet 05/13/23 [Rx] Ibuprofen [Motrin] 400 mg PO Q6H PRN #0 05/13/23 [Rx] hydrALAZINE HCL [Apresoline] 50 mg PO QID #120 tab 05/13/23 [Rx] Follow up Appointment(s)/Referral(s): Carmelo Whitney DDS [STAFF PHYSICIAN] - 05/14/23 8:45 am Ernst Montanez DO [Primary Care Provider] - 1 Week [facility] Visiting Nurse, [NON-STAFF] -
[2023-05-13 12:58] LABS: Glucose,Whole Blood 104 mg/dL (70-110)
--- NOTE | 2023-05-13 14:34 | P.PN ---
Subjective Progress Note Date: 05/13/23 Principal diagnosis: Neck cellulitis/infected tooth Patient is a 57-year-old female with a past medical history significant for sleep apnea ADHD patient has been dealing with infected tooth to the left lower jaw in this patient who did have a root canal doing about 3 weeks ago , presented to hospital with worsening pain swelling and redness to the neck area CT of the face did not show any significant abnormality. Patient is status post extraction of tooth #19 on 05/10/2023 On today's evaluation that is 05/13/2023, the patient remains to be afebrile, the patient is breathing comfortably on room air , the patient denies chest pain shortness of breath or cough, patient denies nausea/vomiting /diarrhea and no abdominal pain, the patient swelling to the chin and lower jaw area has decreased in intensity Patient did have a white count of 7.96 as of 05/11/2023 creatinine is 0.56 as of 05/12/2023, cultures are so far negative Objective - Vital Signs Vital signs: Vital Signs Temp 98.2 F 05/13/23 07:00 Pulse 77 05/13/23 07:00 Resp 16 05/13/23 08:00 BP 149/87 05/13/23 07:00 Pulse Ox 97 05/13/23 07:00 FiO2 Intake & Output 05/12/23 05/13/23 05/13/23 18:59 06:59 18:59 Intake Total 120 Balance 120 Intake: Oral 120 Other: Voiding Method Toilet Toilet Toilet # Voids 2 - Exam GENERAL DESCRIPTION: A middle-age female up in the bed in no distress HEENT : Neck area swelling and redness has decreased in intensity RESPIRATORY SYSTEM: Unlabored breathing , decreased breath sounds at bases HEART: S1 S2 regular rate and rhythm , ABDOMEN: Soft , no tenderness EXTREMITIES: No edema feet - Labs CBC & Chem 7: 05/11/23 05:20 05/12/23 06:20 Labs: Microbiology - Last 24 Hours (Table) 05/10/23 16:15 Gram Stain - Final Neck Wound Culture - Final Assessment and Plan (1) Dental abscess Status: Acute Code(s): K04.7 - PERIAPICAL ABSCESS WITHOUT SINUS SNOMED Code(s): 651485509 (2) Penicillin allergy Status: Acute Code(s): Z88.0 - ALLERGY STATUS TO PENICILLIN SNOMED Code(s): 68469985 Plan: 1patient is in the hospital with left lower jaw and neck area pain swelling redness in this patient with infected tooth in this patient s/p root canal treatment and has been on multiple courses of clindamycin without any relief we will need to cover for the oral [place] of the mouth to the likely pathogen and less likely gram-positive skin [place] with evidence of neck cellulitis likely brijesh d to her infected tooth. 2patient with a penicillin allergy that will limit the number of antibiotics safe to use. 3culture has been negative so far 4patient seemed to have a clinical improvement and will continue on Invanz 1 g daily 2 weeks on discharge and close outpatient follow-up Dictation was produced using [employer] dictation software. please excuse any grammatical, word or spelling errors. Time with Patient: Less than 30
== END 2023-05-13 13:30 | disposition home or self-care (01) | DRG 158 ==
LOC: EC 13:23 → 6NMEDSUR 16:49 → OBSVTOIN 05-11 14:43
PROVIDERS: ADMIT Family Medicine; ATTEND Family Medicine
PROC: 0CDXXZ0 Extraction of Lower Tooth, Single, External Approach (ICD-10-PCS; principal; 2023-05-11)
PROC: 05HC33Z Insertion of Infusion Device into Left Basilic Vein, Percutaneous Approach (ICD-10-PCS; 2023-05-12 16:20)
DX: K04.7 Periapical abscess without sinus (principal); L03.211 Cellulitis of face; L03.221 Cellulitis of neck; Z68.37 Body mass index [BMI] 37.0-37.9, adult; E66.01 Morbid (severe) obesity due to excess calories; F90.9 Attention-deficit hyperactivity disorder, unspecified type; G47.33 Obstructive sleep apnea (adult) (pediatric); I10 Essential (primary) hypertension; Z82.49 Family history of ischemic heart disease and other diseases of the circulatory system; Z88.0 Allergy status to penicillin
CPT/HCPCS: 36410; 36415; 70487; 76937; 80048; 80053; 80202; 82565; 83036; 83605; 85025; 87040; 87070; 87075; 87205; 96365; 96366; 96367; 99285

== ENCOUNTER → 2023-12-29 | Outpatient (CLI) | payer BC ==
--- NOTE | 2024-01-04 19:49 | MM ---
Reason for Exam: Screening (asymptomatic). Last mammogram was performed 2 year(s) and 0 month(s) ago. Patient History: Menarche at age 14. First Full-Term at age 33. Late child-bearing (after 32). Left ovary removed at age 48. Right ovary removed at age 48. Postmenopausal. Currently using Progesterone, for 4 years. Patient used Hormonal Contraceptives for 30 years. Risk Values: Susy 5 year model risk: 1.7%. NCI Lifetime model risk: 10.9%. Prior Study Comparison: 10/10/2019 Bilateral Screening Mammogram, [facility]. 10/20/2019 Right Diagnostic Mammogram, [facility]. 12/30/2021 Bilateral MG screening mammo w CAD, [facility]. Tissue Density: There are scattered areas of fibroglandular density. Findings: Analyzed By CAD. There is no suspicious group of microcalcifications or new suspicious mass in either breast. Overall Assessment: Negative, BI-RAD 1 Management: Screening Mammogram of both breasts in 1 year. . Patient should continue monthly self-breast exams. A clinical breast exam by your physician is recommended on an annual basis. This exam should not preclude additional follow-up of suspicious palpable abnormalities. Note on Susy scores and lifetime risk: 1. A Susy score greater than 3% is considered moderate risk. If this is the case, consider specialist referral to assess eligibility for a risk reducing agent. 2. If overall lifetime risk for the development of breast cancer is 20% or higher, the patient may qualify for future screening with alternating mammogram and breast MRI. Electronically signed and approved by: Emelia Rodriguez M.D. Radiologist
== END | disposition home or self-care (01) ==
LOC: RADMAMWWP 06:37
PROVIDERS: ATTEND Obstetrics & Gynecology
DX: Z12.31 Encounter for screening mammogram for malignant neoplasm of breast (principal); Z78.0 Asymptomatic menopausal state
CPT/HCPCS: 77063; 77067

== ENCOUNTER → 2024-03-21 | Outpatient (CLI) | payer BC | END | disposition home or self-care (01) | LOC: LABPRL 09:05 | PROVIDERS: ATTEND Family Medicine | CPT/HCPCS: 80053; 80061; 83036; 85025 ==